=== PATIENT | male | born 1930 | race Caucasian/White ===

== ENCOUNTER 2018-01-14 23:43 | Inpatient (IN) | payer MEDICARE, OTHER ==
[2018-01-15 00:16] LABS: ADD MAN DIFF? NO
[2018-01-15 00:17] LABS: WHITE BLOOD COUNT 14.5 10^3/ul (4.8-10.8)
[2018-01-15 00:17] LABS: ABNORMAL IP MESSAGE 1; BASOPHILS % 0.2 % (0.0-2.0); EOSINOPHILS % 0.2 % (0.0-7.0); HEMATOCRIT 42.4 % (42.0-52.0); HEMOGLOBIN 14.1 g/dl (14.0-18.0); LYMPHOCYTES # 0.6 10^3/ul (0.8-2.9); LYMPHOCYTES % 3.9 % (15.0-51.0); MEAN CORPUSCULAR HEMOGLOBIN 30.5 pg (29.0-33.0); MEAN CORPUSCULAR HGB CONC 33.3 g/dl (32.0-37.0); MEAN CORPUSCULAR VOLUME 91.6 fl (82.0-101.0); MEAN PLATELET VOLUME 9.3 fl (7.4-10.4); MONOCYTE # 0.6 10^3/ul (0.3-0.9); MONOCYTES % 4.4 % (0.0-11.0); NEUTROPHIL # 13.2 10^3/ul (1.6-7.5); PLATELET COUNT 229 10^3/UL (140-415); POSITIVE DIFF @See below; RED BLOOD COUNT 4.63 10^6/ul (4.70-6.10)
[2018-01-15] MEDS: SODIUM CHLORIDE 0.9% 1L BAG IV* (00:18)
[2018-01-15] MEDS: CEFEPIME 2GM/50 ML (PMX) 50 ML IVPB (00:19)
[2018-01-15] MEDS: KETOROLAC 15 MG INJ IV (00:19)
[2018-01-15] MEDS: VANCOMYCIN 1 GM (PMX) 250 ML IVPB (00:19)
[2018-01-15 01:05] LABS: INR 1.08; PROTIME 14.1 Sec (11.9-14.9); PT RATIO 1.1
[2018-01-15 01:06] LABS: PARTIAL THROMBOPLASTIN TIME 63.8 Sec (23.0-35.0)
[2018-01-15 01:15] LABS: ANION GAP 12 (5-13); BLOOD UREA NITROGEN 29 mg/dl (7-20); CALCIUM 8.9 mg/dl (8.4-10.2); CARBON DIOXIDE 26 mmol/L (21-31); CHLORIDE 103 mmol/L (97-110); CREATININE 1.13 mg/dl (0.61-1.24); GLUCOSE 129 mg/dl (70-220); POTASSIUM 4.6 mmol/L (3.5-5.1); SODIUM 141 mmol/L (135-144)
[2018-01-15 01:27] LABS: TROPONIN-I < 0.012 ng/ml (0.000-0.120)
[2018-01-15 01:37] LABS: ADD UMIC NO; UR ASCORBIC ACID 20 mg/dL (NEGATIVE); UR BILIRUBIN (Dip) NEGATIVE (NEGATIVE); UR BLOOD (Dip) NEGATIVE (NEGATIVE); UR CLARITY CLEAR (CLEAR); UR COLOR YELLOW (YELLOW); UR GLUCOSE (Dip) NEGATIVE (NEGATIVE); UR KETONES (Dip) NEGATIVE (NEGATIVE); UR LEUKOCYTE ESTERASE (Dip) NEGATIVE Leu/ul (NEGATIVE); UR NITRITE (Dip) NEGATIVE (NEGATIVE); UR SPECIFIC GRAVITY (Dip) 1.011 (1.003-1.030); UR TOTAL PROTEIN (Dip) NEGATIVE (NEGATIVE); UR UROBILINOGEN (Dip) NEGATIVE (NEGATIVE)
[2018-01-15] MEDS ORDERED: ACETAMINOPHEN 325 MG TAB PO (02:00)
[2018-01-15] MEDS ORDERED: ONDANSETRON 4 MG INJ IV (02:00)
[2018-01-15] MEDS ORDERED: VANCOMYCIN IV PER PHARMACY XX (05:00)
[2018-01-15] MEDS ORDERED: ACETAMINOPHEN 650 MG SUPP PR (05:00)
[2018-01-15] MEDS: ALBUTEROL/IPRATROPIUM (NEB) 3 ML AMP HHN ×5 (05:12→20:42)
[2018-01-15] MEDS: DEXTROSE 5%-0.45% NACL 1,000 ML IV ×2 (05:22→18:07)
[2018-01-15 06:06] LABS: LACTIC ACID 2.5 mmol/L (0.5-2.0)
[2018-01-15 06:12] LABS: ADD MAN DIFF? NO
[2018-01-15 06:21] LABS: BASOPHILS % 0.1 % (0.0-2.0); HEMATOCRIT 38.2 % (42.0-52.0); HEMOGLOBIN 12.5 g/dl (14.0-18.0); LYMPHOCYTES # 0.7 10^3/ul (0.8-2.9); LYMPHOCYTES % 4.8 % (15.0-51.0); MEAN CORPUSCULAR HEMOGLOBIN 30.7 pg (29.0-33.0); MEAN CORPUSCULAR HGB CONC 32.7 g/dl (32.0-37.0); MEAN CORPUSCULAR VOLUME 93.9 fl (82.0-101.0); MEAN PLATELET VOLUME 9.6 fl (7.4-10.4); MONOCYTE # 0.7 10^3/ul (0.3-0.9); MONOCYTES % 4.5 % (0.0-11.0); NEUTROPHIL # 13.8 10^3/ul (1.6-7.5); NEUTROPHILS % 90.1 % (39.0-77.0); PLATELET COUNT 188 10^3/UL (140-415); RED BLOOD COUNT 4.07 10^6/ul (4.70-6.10); RED CELL DISTRIBUTION WIDTH 13.2 % (11.5-14.5)
[2018-01-15 06:21] LABS: WHITE BLOOD COUNT 15.3 10^3/ul (4.8-10.8)
[2018-01-15 06:36] LABS: ANION GAP 8 (5-13); BLOOD UREA NITROGEN 27 mg/dl (7-20); CALCIUM 8.2 mg/dl (8.4-10.2); CARBON DIOXIDE 24 mmol/L (21-31); CHLORIDE 112 mmol/L (97-110); CREATININE 1.05 mg/dl (0.61-1.24); GLUCOSE 118 mg/dl (70-220); POTASSIUM 4.6 mmol/L (3.5-5.1); SODIUM 144 mmol/L (135-144)
[2018-01-15] MEDS: CEFEPIME 1GM/50 ML (PMX) 50 ML IVPB ×2 (09:53→21:33)
[2018-01-15] MEDS: ENOXAPARIN 40 MG/0.4 ML SYG SC (10:08)
[2018-01-15] MEDS ORDERED: IPRATROPIUM (NEB) 0.5 MG/2.5 ML AMP HHN (17:00)
[2018-01-15] MEDS: LORAZEPAM 2 MG INJ IV (17:41)
[2018-01-15] MEDS: SOD CHLORIDE 0.9% 250 ML IV (17:42)
[2018-01-15] MEDS: LACTOBACILLUS RHAMNOSUS CAP PO (21:00)
[2018-01-15] MEDS: VANCOMYCIN 1.25 GM in SOD CHLORIDE 0.9% 250 ML IVPB (21:36)
[2018-01-16] MEDS: DEXTROSE 5%-0.45% NACL 1,000 ML IV ×3 (00:22→20:46)
[2018-01-16] MEDS: ALBUTEROL/IPRATROPIUM (NEB) 3 ML AMP HHN ×6 (01:18→20:27)
[2018-01-16 05:48] LABS: ADD MAN DIFF? NO
[2018-01-16 05:54] LABS: BASOPHILS % 0.2 % (0.0-2.0); EOSINOPHILS % 0.3 % (0.0-7.0); HEMATOCRIT 32.6 % (42.0-52.0); HEMOGLOBIN 10.7 g/dl (14.0-18.0); LYMPHOCYTES % 9.8 % (15.0-51.0); MEAN CORPUSCULAR HEMOGLOBIN 31.2 pg (29.0-33.0); MEAN CORPUSCULAR HGB CONC 32.8 g/dl (32.0-37.0); MEAN PLATELET VOLUME 9.7 fl (7.4-10.4); MONOCYTE # 0.6 10^3/ul (0.3-0.9); MONOCYTES % 5.6 % (0.0-11.0); NEUTROPHIL # 8.4 10^3/ul (1.6-7.5); NEUTROPHILS % 83.1 % (39.0-77.0); PLATELET COUNT 166 10^3/UL (140-415); RED BLOOD COUNT 3.43 10^6/ul (4.70-6.10); RED CELL DISTRIBUTION WIDTH 13.7 % (11.5-14.5)
[2018-01-16 05:54] LABS: WHITE BLOOD COUNT 10.1 10^3/ul (4.8-10.8)
[2018-01-16] MEDS: PANTOPRAZOLE (EC) 40 MG TAB PO (06:00)
[2018-01-16 06:13] LABS: ANION GAP 7 (5-13); BLOOD UREA NITROGEN 26 mg/dl (7-20); CALCIUM 8.5 mg/dl (8.4-10.2); CARBON DIOXIDE 23 mmol/L (21-31); CHLORIDE 113 mmol/L (97-110); CREATININE 1.03 mg/dl (0.61-1.24); GLUCOSE 109 mg/dl (70-220); POTASSIUM 4.2 mmol/L (3.5-5.1); SODIUM 143 mmol/L (135-144)
[2018-01-16] MEDS: LACTOBACILLUS RHAMNOSUS CAP PO ×3 (09:00→20:46)
[2018-01-16] MEDS: ENOXAPARIN 40 MG/0.4 ML SYG SC (09:32)
[2018-01-16] MEDS: CEFEPIME 1GM/50 ML (PMX) 50 ML IVPB ×2 (09:49→20:47)
[2018-01-16] MEDS: VANCOMYCIN 1.25 GM in SOD CHLORIDE 0.9% 250 ML IVPB (20:47)
[2018-01-17] MEDS: ALBUTEROL/IPRATROPIUM (NEB) 3 ML AMP HHN ×6 (00:42→20:19)
[2018-01-17 05:34] LABS: ADD MAN DIFF? NO
[2018-01-17 05:38] LABS: BASOPHILS % 0.3 % (0.0-2.0); EOSINOPHILS # 0.2 10^3/ul (0.0-0.5); HEMATOCRIT 33.5 % (42.0-52.0); HEMOGLOBIN 11.1 g/dl (14.0-18.0); LYMPHOCYTES # 1.1 10^3/ul (0.8-2.9); LYMPHOCYTES % 10.9 % (15.0-51.0); MEAN CORPUSCULAR HEMOGLOBIN 30.7 pg (29.0-33.0); MEAN CORPUSCULAR HGB CONC 33.1 g/dl (32.0-37.0); MEAN CORPUSCULAR VOLUME 92.5 fl (82.0-101.0); MEAN PLATELET VOLUME 9.7 fl (7.4-10.4); MONOCYTE # 0.6 10^3/ul (0.3-0.9); MONOCYTES % 6.5 % (0.0-11.0); NEUTROPHIL # 7.8 10^3/ul (1.6-7.5); NEUTROPHILS % 79.9 % (39.0-77.0); PLATELET COUNT 152 10^3/UL (140-415); RED BLOOD COUNT 3.62 10^6/ul (4.70-6.10); RED CELL DISTRIBUTION WIDTH 13.7 % (11.5-14.5)
[2018-01-17 05:38] LABS: WHITE BLOOD COUNT 9.7 10^3/ul (4.8-10.8)
[2018-01-17 06:05] LABS: ANION GAP 6 (5-13); BLOOD UREA NITROGEN 20 mg/dl (7-20); CALCIUM 8.6 mg/dl (8.4-10.2); CARBON DIOXIDE 25 mmol/L (21-31); CHLORIDE 113 mmol/L (97-110); CREATININE 0.93 mg/dl (0.61-1.24); GLUCOSE 96 mg/dl (70-220); POTASSIUM 4.1 mmol/L (3.5-5.1); SODIUM 144 mmol/L (135-144)
[2018-01-17] MEDS: PANTOPRAZOLE (EC) 40 MG TAB PO (06:37)
[2018-01-17] MEDS: CEFEPIME 1GM/50 ML (PMX) 50 ML IVPB ×2 (09:21→21:13)
[2018-01-17] MEDS: LACTOBACILLUS RHAMNOSUS CAP PO ×3 (09:21→21:13)
[2018-01-17] MEDS: ENOXAPARIN 40 MG/0.4 ML SYG SC (09:30)
[2018-01-17] MEDS: DEXTROSE 5%-0.45% NACL 1,000 ML IV ×2 (10:20→15:08)
[2018-01-18] MEDS: ALBUTEROL/IPRATROPIUM (NEB) 3 ML AMP HHN ×7 (00:34→20:00)
[2018-01-18 05:38] LABS: ADD MAN DIFF? NO
[2018-01-18 05:39] LABS: WHITE BLOOD COUNT 9.6 10^3/ul (4.8-10.8)
[2018-01-18 05:39] LABS: BASOPHILS % 0.2 % (0.0-2.0); EOSINOPHILS # 0.3 10^3/ul (0.0-0.5); EOSINOPHILS % 3.6 % (0.0-7.0); HEMATOCRIT 32.7 % (42.0-52.0); HEMOGLOBIN 10.9 g/dl (14.0-18.0); LYMPHOCYTES # 1.1 10^3/ul (0.8-2.9); LYMPHOCYTES % 11.8 % (15.0-51.0); MEAN CORPUSCULAR HEMOGLOBIN 30.9 pg (29.0-33.0); MEAN CORPUSCULAR HGB CONC 33.3 g/dl (32.0-37.0); MEAN CORPUSCULAR VOLUME 92.6 fl (82.0-101.0); MEAN PLATELET VOLUME 9.8 fl (7.4-10.4); MONOCYTE # 0.5 10^3/ul (0.3-0.9); MONOCYTES % 5.1 % (0.0-11.0); NEUTROPHIL # 7.5 10^3/ul (1.6-7.5); NEUTROPHILS % 78.9 % (39.0-77.0); PLATELET COUNT 167 10^3/UL (140-415); RED BLOOD COUNT 3.53 10^6/ul (4.70-6.10); RED CELL DISTRIBUTION WIDTH 13.8 % (11.5-14.5)
[2018-01-18 06:11] LABS: ANION GAP 10 (5-13); BLOOD UREA NITROGEN 16 mg/dl (7-20); CALCIUM 8.5 mg/dl (8.4-10.2); CARBON DIOXIDE 25 mmol/L (21-31); CHLORIDE 109 mmol/L (97-110); CREATININE 0.96 mg/dl (0.61-1.24); GLUCOSE 100 mg/dl (70-220); POTASSIUM 3.4 mmol/L (3.5-5.1); SODIUM 144 mmol/L (135-144)
[2018-01-18] MEDS: DEXTROSE 5%-0.45% NACL 1,000 ML IV ×2 (06:11→21:58)
[2018-01-18] MEDS: PANTOPRAZOLE (EC) 40 MG TAB PO (06:11)
[2018-01-18] MEDS: LACTOBACILLUS RHAMNOSUS CAP PO ×3 (09:01→22:58)
[2018-01-18] MEDS: CEFEPIME 1GM/50 ML (PMX) 50 ML IVPB ×2 (09:01→21:58)
[2018-01-18] MEDS: ENOXAPARIN 40 MG/0.4 ML SYG SC (09:10)
[2018-01-18] MEDS: POTASSIUM CHLORIDE 100 ML IVPB (12:49)
[2018-01-19] MEDS: ALBUTEROL/IPRATROPIUM (NEB) 3 ML AMP HHN ×6 (01:29→20:59)
[2018-01-19] MEDS: DEXTROSE 5%-0.45% NACL 1,000 ML IV ×2 (02:20→12:25)
[2018-01-19 06:12] LABS: ADD MAN DIFF? NO
[2018-01-19 06:20] LABS: WHITE BLOOD COUNT 8.7 10^3/ul (4.8-10.8)
[2018-01-19 06:20] LABS: BASOPHILS % 0.3 % (0.0-2.0); EOSINOPHILS # 0.4 10^3/ul (0.0-0.5); EOSINOPHILS % 4.7 % (0.0-7.0); HEMATOCRIT 34.9 % (42.0-52.0); HEMOGLOBIN 11.4 g/dl (14.0-18.0); LYMPHOCYTES # 1.2 10^3/ul (0.8-2.9); LYMPHOCYTES % 14.2 % (15.0-51.0); MEAN CORPUSCULAR HEMOGLOBIN 30.5 pg (29.0-33.0); MEAN CORPUSCULAR HGB CONC 32.7 g/dl (32.0-37.0); MEAN CORPUSCULAR VOLUME 93.3 fl (82.0-101.0); MEAN PLATELET VOLUME 9.6 fl (7.4-10.4); MONOCYTE # 0.7 10^3/ul (0.3-0.9); MONOCYTES % 7.6 % (0.0-11.0); NEUTROPHIL # 6.3 10^3/ul (1.6-7.5); NEUTROPHILS % 72.5 % (39.0-77.0); PLATELET COUNT 201 10^3/UL (140-415); RED BLOOD COUNT 3.74 10^6/ul (4.70-6.10); RED CELL DISTRIBUTION WIDTH 13.5 % (11.5-14.5)
[2018-01-19] MEDS: LANSOPRAZOLE 30 MG CAP PO (06:37)
[2018-01-19 07:17] LABS: ANION GAP 7 (5-13); BLOOD UREA NITROGEN 14 mg/dl (7-20); CALCIUM 8.8 mg/dl (8.4-10.2); CARBON DIOXIDE 25 mmol/L (21-31); CHLORIDE 111 mmol/L (97-110); CREATININE 0.88 mg/dl (0.61-1.24); GLUCOSE 96 mg/dl (70-220); POTASSIUM 3.9 mmol/L (3.5-5.1); SODIUM 143 mmol/L (135-144)
[2018-01-19] MEDS: BARIUM SULFATE 135 ML (E-Z HD) PO ×4 (09:55→09:56)
[2018-01-19] MEDS: LACTOBACILLUS RHAMNOSUS CAP PO ×3 (11:10→20:48)
[2018-01-19] MEDS: ENOXAPARIN 40 MG/0.4 ML SYG SC (11:21)
[2018-01-19] MEDS: CEFEPIME 1GM/50 ML (PMX) 50 ML IVPB ×2 (12:25→20:48)
[2018-01-20] MEDS: ALBUTEROL/IPRATROPIUM (NEB) 3 ML AMP HHN ×6 (01:20→20:23)
[2018-01-20] MEDS: DEXTROSE 5%-0.45% NACL 1,000 ML IV ×2 (04:47→21:14)
[2018-01-20] MEDS: BARIUM SULFATE 135 ML (E-Z HD) PO (04:58)
[2018-01-20] MEDS: LANSOPRAZOLE 30 MG CAP PO (05:00)
[2018-01-20 06:18] LABS: WHITE BLOOD COUNT 8.9 10^3/ul (4.8-10.8)
[2018-01-20 06:18] LABS: ADD MAN DIFF? NO; BASOPHILS % 0.3 % (0.0-2.0); EOSINOPHILS # 0.3 10^3/ul (0.0-0.5); EOSINOPHILS % 3.8 % (0.0-7.0); HEMATOCRIT 34.8 % (42.0-52.0); HEMOGLOBIN 11.3 g/dl (14.0-18.0); LYMPHOCYTES # 1.3 10^3/ul (0.8-2.9); LYMPHOCYTES % 14.1 % (15.0-51.0); MEAN CORPUSCULAR HEMOGLOBIN 30.6 pg (29.0-33.0); MEAN CORPUSCULAR HGB CONC 32.5 g/dl (32.0-37.0); MEAN CORPUSCULAR VOLUME 94.3 fl (82.0-101.0); MONOCYTE # 0.7 10^3/ul (0.3-0.9); MONOCYTES % 8.1 % (0.0-11.0); NEUTROPHIL # 6.5 10^3/ul (1.6-7.5); NEUTROPHILS % 73.1 % (39.0-77.0); PLATELET COUNT 200 10^3/UL (140-415); RED BLOOD COUNT 3.69 10^6/ul (4.70-6.10); RED CELL DISTRIBUTION WIDTH 13.8 % (11.5-14.5)
[2018-01-20 07:20] LABS: ANION GAP 8 (5-13); BLOOD UREA NITROGEN 13 mg/dl (7-20); CALCIUM 8.6 mg/dl (8.4-10.2); CARBON DIOXIDE 27 mmol/L (21-31); CHLORIDE 108 mmol/L (97-110); CREATININE 0.88 mg/dl (0.61-1.24); GLUCOSE 99 mg/dl (70-220); POTASSIUM 3.7 mmol/L (3.5-5.1); SODIUM 143 mmol/L (135-144)
[2018-01-20] MEDS: LACTOBACILLUS RHAMNOSUS CAP PO ×3 (08:42→21:14)
[2018-01-20] MEDS: CEFEPIME 1GM/50 ML (PMX) 50 ML IVPB ×2 (08:43→21:14)
[2018-01-20] MEDS: ENOXAPARIN 40 MG/0.4 ML SYG SC (09:06)
[2018-01-21] MEDS: ALBUTEROL/IPRATROPIUM (NEB) 3 ML AMP HHN ×6 (00:54→21:48)
[2018-01-21] MEDS: LANSOPRAZOLE 30 MG CAP PO (06:03)
[2018-01-21 06:10] LABS: ADD MAN DIFF? NO
[2018-01-21 06:20] LABS: WHITE BLOOD COUNT 8.8 10^3/ul (4.8-10.8)
[2018-01-21 06:20] LABS: BASOPHILS % 0.5 % (0.0-2.0); EOSINOPHILS # 0.4 10^3/ul (0.0-0.5); EOSINOPHILS % 4.1 % (0.0-7.0); HEMATOCRIT 34.8 % (42.0-52.0); HEMOGLOBIN 11.1 g/dl (14.0-18.0); LYMPHOCYTES # 1.5 10^3/ul (0.8-2.9); LYMPHOCYTES % 17.4 % (15.0-51.0); MEAN CORPUSCULAR HEMOGLOBIN 30.2 pg (29.0-33.0); MEAN CORPUSCULAR HGB CONC 31.9 g/dl (32.0-37.0); MEAN CORPUSCULAR VOLUME 94.8 fl (82.0-101.0); MEAN PLATELET VOLUME 9.7 fl (7.4-10.4); MONOCYTE # 0.6 10^3/ul (0.3-0.9); MONOCYTES % 6.9 % (0.0-11.0); NEUTROPHIL # 6.2 10^3/ul (1.6-7.5); NEUTROPHILS % 70.5 % (39.0-77.0); PLATELET COUNT 227 10^3/UL (140-415); RED BLOOD COUNT 3.67 10^6/ul (4.70-6.10); RED CELL DISTRIBUTION WIDTH 13.8 % (11.5-14.5)
[2018-01-21 06:25] LABS: ANION GAP 7 (5-13); BLOOD UREA NITROGEN 12 mg/dl (7-20); CALCIUM 8.9 mg/dl (8.4-10.2); CARBON DIOXIDE 27 mmol/L (21-31); CHLORIDE 109 mmol/L (97-110); CREATININE 0.97 mg/dl (0.61-1.24); GLUCOSE 98 mg/dl (70-220); SODIUM 143 mmol/L (135-144)
[2018-01-21] MEDS: DEXTROSE 5%-0.45% NACL 1,000 ML IV ×2 (08:00→21:14)
[2018-01-21] MEDS: LACTOBACILLUS RHAMNOSUS CAP PO ×3 (10:06→21:15)
[2018-01-21] MEDS: CEFEPIME 1GM/50 ML (PMX) 50 ML IVPB ×2 (10:06→21:15)
[2018-01-21] MEDS: ENOXAPARIN 40 MG/0.4 ML SYG SC (10:09)
[2018-01-22] MEDS: ALBUTEROL/IPRATROPIUM (NEB) 3 ML AMP HHN ×6 (01:56→20:30)
[2018-01-22 05:36] LABS: ADD MAN DIFF? NO
[2018-01-22 05:43] LABS: WHITE BLOOD COUNT 7.2 10^3/ul (4.8-10.8)
[2018-01-22 05:43] LABS: BASOPHILS % 0.6 % (0.0-2.0); EOSINOPHILS # 0.3 10^3/ul (0.0-0.5); EOSINOPHILS % 3.8 % (0.0-7.0); HEMATOCRIT 34.2 % (42.0-52.0); LYMPHOCYTES # 1.3 10^3/ul (0.8-2.9); LYMPHOCYTES % 17.5 % (15.0-51.0); MEAN CORPUSCULAR HEMOGLOBIN 30.4 pg (29.0-33.0); MEAN CORPUSCULAR HGB CONC 32.2 g/dl (32.0-37.0); MEAN CORPUSCULAR VOLUME 94.5 fl (82.0-101.0); MEAN PLATELET VOLUME 9.8 fl (7.4-10.4); MONOCYTE # 0.6 10^3/ul (0.3-0.9); MONOCYTES % 8.5 % (0.0-11.0); NEUTROPHILS % 68.8 % (39.0-77.0); PLATELET COUNT 227 10^3/UL (140-415); RED BLOOD COUNT 3.62 10^6/ul (4.70-6.10); RED CELL DISTRIBUTION WIDTH 13.8 % (11.5-14.5)
[2018-01-22] MEDS: LANSOPRAZOLE 30 MG CAP PO (06:03)
[2018-01-22 07:52] LABS: ANION GAP 8 (5-13); BLOOD UREA NITROGEN 11 mg/dl (7-20); CALCIUM 8.7 mg/dl (8.4-10.2); CARBON DIOXIDE 27 mmol/L (21-31); CHLORIDE 109 mmol/L (97-110); CREATININE 0.94 mg/dl (0.61-1.24); GLUCOSE 104 mg/dl (70-220); POTASSIUM 4.5 mmol/L (3.5-5.1); SODIUM 144 mmol/L (135-144)
[2018-01-22] MEDS: LACTOBACILLUS RHAMNOSUS CAP PO ×3 (08:31→21:05)
[2018-01-22] MEDS: CEFEPIME 1GM/50 ML (PMX) 50 ML IVPB ×2 (08:31→21:05)
[2018-01-22] MEDS: ENOXAPARIN 40 MG/0.4 ML SYG SC (08:44)
[2018-01-22] MEDS: DEXTROSE 5%-0.45% NACL 1,000 ML IV ×2 (10:40→23:20)
[2018-01-22] MEDS ORDERED: COLLAGENASE 5 GM (UD JAR) TOP (21:12)
[2018-01-23] MEDS: ALBUTEROL/IPRATROPIUM (NEB) 3 ML AMP HHN ×6 (01:48→20:21)
[2018-01-23 05:38] LABS: ADD MAN DIFF? NO
[2018-01-23 05:41] LABS: BASOPHILS % 0.5 % (0.0-2.0); EOSINOPHILS # 0.3 10^3/ul (0.0-0.5); EOSINOPHILS % 3.7 % (0.0-7.0); HEMATOCRIT 34.1 % (42.0-52.0); HEMOGLOBIN 10.9 g/dl (14.0-18.0); LYMPHOCYTES # 1.3 10^3/ul (0.8-2.9); LYMPHOCYTES % 17.1 % (15.0-51.0); MEAN CORPUSCULAR HEMOGLOBIN 30.2 pg (29.0-33.0); MEAN CORPUSCULAR VOLUME 94.5 fl (82.0-101.0); MEAN PLATELET VOLUME 10.6 fl (7.4-10.4); MONOCYTE # 0.7 10^3/ul (0.3-0.9); MONOCYTES % 8.7 % (0.0-11.0); NEUTROPHIL # 5.2 10^3/ul (1.6-7.5); NEUTROPHILS % 69.5 % (39.0-77.0); PLATELET COUNT 197 10^3/UL (140-415); POSITIVE DIFF @See below; RED BLOOD COUNT 3.61 10^6/ul (4.70-6.10); RED CELL DISTRIBUTION WIDTH 13.4 % (11.5-14.5)
[2018-01-23 05:41] LABS: WHITE BLOOD COUNT 7.5 10^3/ul (4.8-10.8)
[2018-01-23] MEDS: LANSOPRAZOLE 30 MG CAP PO (05:44)
[2018-01-23 07:39] LABS: ANION GAP 10 (5-13); BLOOD UREA NITROGEN 11 mg/dl (7-20); CALCIUM 8.7 mg/dl (8.4-10.2); CARBON DIOXIDE 26 mmol/L (21-31); CHLORIDE 108 mmol/L (97-110); GLUCOSE 97 mg/dl (70-220); POTASSIUM 4.2 mmol/L (3.5-5.1); SODIUM 144 mmol/L (135-144)
[2018-01-23] MEDS: LACTOBACILLUS RHAMNOSUS CAP PO ×3 (08:30→21:11)
[2018-01-23] MEDS: CEFEPIME 1GM/50 ML (PMX) 50 ML IVPB ×2 (08:31→21:11)
[2018-01-23] MEDS: ENOXAPARIN 40 MG/0.4 ML SYG SC (08:35)
[2018-01-23] MEDS: DEXTROSE 5%-0.45% NACL 1,000 ML IV (12:57)
[2018-01-23] MEDS: TAMSULOSIN (SR) 0.4 MG CAP PO (21:11)
[2018-01-24] MEDS: ALBUTEROL/IPRATROPIUM (NEB) 3 ML AMP HHN ×6 (00:02→20:24)
[2018-01-24] MEDS: DEXTROSE 5%-0.45% NACL 1,000 ML IV ×2 (03:46→15:50)
[2018-01-24] MEDS: LANSOPRAZOLE 30 MG CAP PO (05:04)
[2018-01-24] MEDS: LACTOBACILLUS RHAMNOSUS CAP PO ×3 (08:23→22:24)
[2018-01-24] MEDS: CEFEPIME 1GM/50 ML (PMX) 50 ML IVPB ×2 (08:23→22:24)
[2018-01-24] MEDS: ENOXAPARIN 40 MG/0.4 ML SYG SC (08:32)
[2018-01-24] MEDS: TAMSULOSIN (SR) 0.4 MG CAP PO (22:24)
[2018-01-25] MEDS: ALBUTEROL/IPRATROPIUM (NEB) 3 ML AMP HHN ×6 (00:45→21:00)
[2018-01-25] MEDS: LANSOPRAZOLE 30 MG CAP PO (05:07)
[2018-01-25] MEDS: DEXTROSE 5%-0.45% NACL 1,000 ML IV (05:08)
[2018-01-25] MEDS: LACTOBACILLUS RHAMNOSUS CAP PO ×3 (09:58→20:54)
[2018-01-25] MEDS: ENOXAPARIN 40 MG/0.4 ML SYG SC (10:23)
[2018-01-25] MEDS: TAMSULOSIN (SR) 0.4 MG CAP PO (20:54)
[2018-01-26] MEDS: ALBUTEROL/IPRATROPIUM (NEB) 3 ML AMP HHN ×4 (01:16→13:37)
[2018-01-26] MEDS: LANSOPRAZOLE 30 MG CAP PO (05:27)
[2018-01-26] MEDS: LACTOBACILLUS RHAMNOSUS CAP PO ×2 (09:38→12:53)
[2018-01-26] MEDS: ENOXAPARIN 40 MG/0.4 ML SYG SC (10:15)
== END 2018-01-26 15:48 | DRG 871 ==
LOC: E/R 23:43 → 6WM 01-15 01:35
DX: A41.9 Sepsis, unspecified organism (principal); J69.0 Pneumonitis due to inhalation of food and vomit; J96.01 Acute respiratory failure with hypoxia; G93.49 Other encephalopathy; E87.2 Acidosis; N39.0 Urinary tract infection, site not specified; R65.20 Severe sepsis without septic shock; D64.9 Anemia, unspecified; F32.9 Major depressive disorder, single episode, unspecified; F22 Delusional disorders; F02.80 Dementia in other diseases classified elsewhere, unspecified severity, without behavioral disturbance, psychotic disturbance, mood disturbance, and anxiety; G20 Parkinson's disease; K21.9 Gastro-esophageal reflux disease without esophagitis; I95.9 Hypotension, unspecified; I50.9 Heart failure, unspecified; I69.939 Monoplegia of upper limb following unspecified cerebrovascular disease affecting unspecified side; I69.991 Dysphagia following unspecified cerebrovascular disease; R13.10 Dysphagia, unspecified; M62.81 Muscle weakness (generalized); M54.5 Low back pain; M79.2 Neuralgia and neuritis, unspecified; N40.1 Benign prostatic hyperplasia with lower urinary tract symptoms; N39.498 Other specified urinary incontinence; Z87.440 Personal history of urinary (tract) infections
CPT/HCPCS: 36415; 71045; 74230; 80048; 81003; 82962; 83605; 84484; 85025; 85610; 85730; 87040; 87045; 87070; 87081; 87086; 89220; 92526; 92610; 92611; 93005; 93306; 94640; 94664; 96365; 96368; 96375; 99291-25

== ENCOUNTER 2018-07-21 22:42 | Inpatient (IN) | payer MEDICARE, OTHER ==
[2018-07-21 23:49] LABS: ADD MAN DIFF? NO
[2018-07-21] MEDS: SODIUM CHLORIDE 0.9% 1L BAG IV* (23:50)
[2018-07-21 23:59] LABS: WHITE BLOOD COUNT 19.8 10^3/ul (4.8-10.8)
[2018-07-21 23:59] LABS: BASOPHIL # 0.1 10^3/ul (0.0-0.1); BASOPHILS % 0.3 % (0.0-2.0); EOSINOPHILS # 0.2 10^3/ul (0.0-0.5); EOSINOPHILS % 0.9 % (0.0-7.0); HEMATOCRIT 40.7 % (42.0-52.0); HEMOGLOBIN 13.5 g/dl (14.0-18.0); LYMPHOCYTES # 1.6 10^3/ul (0.8-2.9); LYMPHOCYTES % 7.8 % (15.0-51.0); MEAN CORPUSCULAR HEMOGLOBIN 30.4 pg (29.0-33.0); MEAN CORPUSCULAR HGB CONC 33.2 g/dl (32.0-37.0); MEAN CORPUSCULAR VOLUME 91.7 fl (82.0-101.0); MEAN PLATELET VOLUME 9.7 fl (7.4-10.4); MONOCYTES % 5.2 % (0.0-11.0); NEUTROPHIL # 16.9 10^3/ul (1.6-7.5); NEUTROPHILS % 85.2 % (39.0-77.0); PLATELET COUNT 231 10^3/UL (140-415); RED BLOOD COUNT 4.44 10^6/ul (4.70-6.10); RED CELL DISTRIBUTION WIDTH 13.1 % (11.5-14.5)
[2018-07-22 00:19] LABS: INR 0.99; PROTIME 13.2 Sec (11.9-14.9)
[2018-07-22 00:20] LABS: PARTIAL THROMBOPLASTIN TIME 61.7 Sec (23.0-35.0)
[2018-07-22 00:26] LABS: ADD UMIC YES; UR AMORPHOUS CRYSTAL FEW /HPF (NONE SEEN); UR ASCORBIC ACID 40 mg/dL (NEGATIVE); UR BACTERIA FEW /HPF (NONE SEEN); UR BILIRUBIN (Dip) NEGATIVE (NEGATIVE); UR BLOOD (Dip) 1+ mg/dL (NEGATIVE); UR CLARITY TURBID (CLEAR); UR COLOR YELLOW (YELLOW); UR GLUCOSE (Dip) NEGATIVE (NEGATIVE); UR KETONES (Dip) TRACE mg/dL (NEGATIVE); UR LEUKOCYTE ESTERASE (Dip) 3+ Leu/ul (NEGATIVE); UR NITRITE (Dip) NEGATIVE (NEGATIVE); UR RBC 147 /HPF (0-5); UR SPECIFIC GRAVITY (Dip) 1.017 (1.003-1.030); UR TOTAL PROTEIN (Dip) 1+ mg/dl (NEGATIVE); UR UROBILINOGEN (Dip) NEGATIVE (NEGATIVE); UR WBC > 182 /HPF (0-5)
[2018-07-22 00:27] LABS: ALANINE AMINOTRANSFERASE 9 IU/L (13-69); ALBUMIN 3.9 g/dl (3.3-4.9); ALBUMIN/GLOBULIN RATIO 1.05; ALKALINE PHOSPHATASE 71 IU/L (42-121); ANION GAP 7 (5-13); ASPARTATE AMINO TRANSFERASE 29 IU/L (15-46); BILIRUBIN,INDIRECT 0.6 mg/dl (0-1.1); BILIRUBIN,TOTAL 0.6 mg/dl (0.2-1.3); BLOOD UREA NITROGEN 33 mg/dl (7-20); CALCIUM 8.9 mg/dl (8.4-10.2); CARBON DIOXIDE 29 mmol/L (21-31); CHLORIDE 106 mmol/L (97-110); CREATININE 1.07 mg/dl (0.61-1.24); GLUCOSE 121 mg/dl (70-220); POTASSIUM 5.4 mmol/L (3.5-5.1); SODIUM 142 mmol/L (135-144); TOTAL PROTEIN 7.6 g/dl (6.1-8.1)
[2018-07-22 00:34] LABS: VALPROATE 19 ug/ml (50-100)
[2018-07-22 00:37] LABS: TROPONIN-I < 0.012 ng/ml (0.000-0.120)
[2018-07-22] MEDS: MEROPENEM 1 GM/50ML(PMX) 50 ML IVPB (02:41)
[2018-07-22] MEDS ORDERED: ONDANSETRON 4 MG INJ IV (10:30)
[2018-07-22] MEDS ORDERED: morphine 2 MG INJ IV (10:30)
[2018-07-22] MEDS ORDERED: ACETAMINOPHEN 325 MG TAB PO (13:00)
[2018-07-22] MEDS ORDERED: ALBUTEROL 0.083% (NEB) 2.5 MG/3 ML AMP NEB (13:00)
[2018-07-22] MEDS: FERROUS SULFATE 60 MG/ML 5ML CUP PO (13:28)
[2018-07-22] MEDS: FINASTERIDE 5 MG TAB PO (13:28)
[2018-07-22] MEDS: CHOLECALCIFEROL 1,000 UNIT TAB PO (13:28)
[2018-07-22] MEDS: DILTIAZEM 60 MG TAB GTB ×2 (13:29→22:00)
[2018-07-22] MEDS: CALCIUM CARBONATE 1.25 GM TAB PO (13:29)
[2018-07-22] MEDS: MEROPENEM 500MG/50 ML (PMX) 50 ML IVPB ×2 (13:29→22:47)
[2018-07-22] MEDS: ALBUTEROL/IPRATROPIUM (NEB) 3 ML AMP HHN ×2 (13:45→20:17)
[2018-07-22] MEDS: DIVALPROEX SPRINKLE 125 MG CAP PO ×2 (17:30→20:37)
[2018-07-22] MEDS: TAMSULOSIN (SR) 0.4 MG CAP PO (20:38)
[2018-07-22] MEDS: BETAMETHASONE/CLOTRIMAZOLE 15 GM CR TOP (20:38)
[2018-07-22] MEDS: CARBIDOPA/LEVODOPA (25/100) TAB PO (20:38)
[2018-07-22] MEDS: CITALOPRAM 20 MG TAB PO (20:38)
[2018-07-22] MEDS: ATORVASTATIN 10 MG TAB PO (20:38)
[2018-07-22] MEDS: LORAZEPAM 2 MG INJ IV (22:20)
[2018-07-22] MEDS ORDERED: PENDING SANTYL ORDER FOR WOUND CARE XX (22:30)
[2018-07-23] MEDS: ALBUTEROL/IPRATROPIUM (NEB) 3 ML AMP HHN ×4 (01:39→19:40)
[2018-07-23 05:33] LABS: ADD MAN DIFF? NO
[2018-07-23] MEDS: MEROPENEM 500MG/50 ML (PMX) 50 ML IVPB ×3 (05:33→20:37)
[2018-07-23 05:40] LABS: WHITE BLOOD COUNT 9.5 10^3/ul (4.8-10.8)
[2018-07-23 05:40] LABS: BASOPHILS % 0.4 % (0.0-2.0); EOSINOPHILS # 0.4 10^3/ul (0.0-0.5); EOSINOPHILS % 4.1 % (0.0-7.0); HEMATOCRIT 34.9 % (42.0-52.0); HEMOGLOBIN 11.2 g/dl (14.0-18.0); LYMPHOCYTES # 1.2 10^3/ul (0.8-2.9); LYMPHOCYTES % 12.6 % (15.0-51.0); MEAN CORPUSCULAR HEMOGLOBIN 29.7 pg (29.0-33.0); MEAN CORPUSCULAR HGB CONC 32.1 g/dl (32.0-37.0); MEAN CORPUSCULAR VOLUME 92.6 fl (82.0-101.0); MEAN PLATELET VOLUME 9.8 fl (7.4-10.4); MONOCYTE # 0.6 10^3/ul (0.3-0.9); MONOCYTES % 6.2 % (0.0-11.0); NEUTROPHIL # 7.2 10^3/ul (1.6-7.5); NEUTROPHILS % 76.3 % (39.0-77.0); PLATELET COUNT 211 10^3/UL (140-415); RED BLOOD COUNT 3.77 10^6/ul (4.70-6.10); RED CELL DISTRIBUTION WIDTH 13.2 % (11.5-14.5)
[2018-07-23] MEDS: DILTIAZEM 60 MG TAB GTB ×3 (06:00→22:00)
[2018-07-23 06:08] LABS: ANION GAP 7 (5-13); BLOOD UREA NITROGEN 26 mg/dl (7-20); CALCIUM 8.3 mg/dl (8.4-10.2); CARBON DIOXIDE 28 mmol/L (21-31); CHLORIDE 112 mmol/L (97-110); CREATININE 0.97 mg/dl (0.61-1.24); GLUCOSE 92 mg/dl (70-220); POTASSIUM 3.9 mmol/L (3.5-5.1); SODIUM 147 mmol/L (135-144)
[2018-07-23] MEDS: CALCIUM CARBONATE 1.25 GM TAB PO (08:41)
[2018-07-23] MEDS: FERROUS SULFATE 60 MG/ML 5ML CUP PO (08:41)
[2018-07-23] MEDS: CHOLECALCIFEROL 1,000 UNIT TAB PO (08:41)
[2018-07-23] MEDS: FINASTERIDE 5 MG TAB PO (08:41)
[2018-07-23] MEDS: CARBIDOPA/LEVODOPA (25/100) TAB PO ×2 (08:41→20:36)
[2018-07-23] MEDS: ASPIRIN 81 MG TAB PO (08:41)
[2018-07-23] MEDS: DIVALPROEX SPRINKLE 125 MG CAP PO ×3 (08:41→20:34)
[2018-07-23] MEDS: BETAMETHASONE/CLOTRIMAZOLE 15 GM CR TOP ×2 (08:41→20:38)
[2018-07-23] MEDS: ENOXAPARIN 30 MG/0.3 ML SYG SC (08:42)
[2018-07-23] MEDS: TAMSULOSIN (SR) 0.4 MG CAP PO (20:35)
[2018-07-23] MEDS: CITALOPRAM 20 MG TAB PO (20:36)
[2018-07-23] MEDS: ATORVASTATIN 10 MG TAB PO (20:38)
[2018-07-23] MEDS: hydrOXYzine HCL 10 MG TAB GTB (20:42)
[2018-07-24] MEDS: ALBUTEROL/IPRATROPIUM (NEB) 3 ML AMP HHN ×4 (01:22→19:47)
[2018-07-24] MEDS: MEROPENEM 500MG/50 ML (PMX) 50 ML IVPB ×3 (05:55→22:07)
[2018-07-24] MEDS: DILTIAZEM 60 MG TAB GTB ×3 (05:58→21:57)
[2018-07-24] MEDS: ENOXAPARIN 30 MG/0.3 ML SYG SC (08:54)
[2018-07-24] MEDS: CHOLECALCIFEROL 1,000 UNIT TAB PO (08:55)
[2018-07-24] MEDS: CALCIUM CARBONATE 1.25 GM TAB PO (08:55)
[2018-07-24] MEDS: CARBIDOPA/LEVODOPA (25/100) TAB PO ×2 (08:55→21:51)
[2018-07-24] MEDS: FERROUS SULFATE 60 MG/ML 5ML CUP PO (08:55)
[2018-07-24] MEDS: FINASTERIDE 5 MG TAB PO (08:55)
[2018-07-24] MEDS: DIVALPROEX SPRINKLE 125 MG CAP PO ×3 (08:55→21:52)
[2018-07-24] MEDS: ASPIRIN 81 MG TAB PO (08:55)
[2018-07-24] MEDS: DOCUSATE SODIUM 10 MG/ML (10ML CUP) PO ×2 (08:57→21:54)
[2018-07-24] MEDS: BETAMETHASONE/CLOTRIMAZOLE 15 GM CR TOP ×2 (08:57→21:54)
[2018-07-24] MEDS: ATORVASTATIN 10 MG TAB PO (21:52)
[2018-07-24] MEDS: TAMSULOSIN (SR) 0.4 MG CAP PO (21:52)
[2018-07-24] MEDS: CITALOPRAM 20 MG TAB PO (21:52)
[2018-07-25] MEDS: hydrOXYzine HCL 10 MG TAB GTB (01:00)
[2018-07-25] MEDS: ALBUTEROL/IPRATROPIUM (NEB) 3 ML AMP HHN ×4 (02:00→21:20)
[2018-07-25] MEDS: MEROPENEM 500MG/50 ML (PMX) 50 ML IVPB ×3 (05:40→23:24)
[2018-07-25] MEDS: DILTIAZEM 60 MG TAB GTB ×3 (06:14→21:28)
[2018-07-25] MEDS: ENOXAPARIN 30 MG/0.3 ML SYG SC (08:41)
[2018-07-25] MEDS: DIVALPROEX SPRINKLE 125 MG CAP PO ×3 (08:42→21:13)
[2018-07-25] MEDS: FINASTERIDE 5 MG TAB PO (08:42)
[2018-07-25] MEDS: ASPIRIN 81 MG TAB PO (08:42)
[2018-07-25] MEDS: BETAMETHASONE/CLOTRIMAZOLE 15 GM CR TOP ×2 (08:42→21:30)
[2018-07-25] MEDS: CHOLECALCIFEROL 1,000 UNIT TAB PO (08:42)
[2018-07-25] MEDS: CARBIDOPA/LEVODOPA (25/100) TAB PO ×2 (08:42→21:13)
[2018-07-25] MEDS: FERROUS SULFATE 60 MG/ML 5ML CUP PO (08:42)
[2018-07-25] MEDS: CALCIUM CARBONATE 1.25 GM TAB PO (08:42)
[2018-07-25] MEDS: DOCUSATE SODIUM 10 MG/ML (10ML CUP) PO ×2 (08:42→21:13)
[2018-07-25] MEDS ORDERED: VANCOMYCIN IV PER PHARMACY XX (15:30)
[2018-07-25] MEDS: VANCOMYCIN HCL 1.5 GM in SOD CHLORIDE 0.9% 250 ML IVPB (19:46)
[2018-07-25] MEDS: ATORVASTATIN 10 MG TAB PO (21:13)
[2018-07-25] MEDS: TAMSULOSIN (SR) 0.4 MG CAP PO (21:14)
[2018-07-25] MEDS: CITALOPRAM 20 MG TAB PO (21:26)
[2018-07-26] MEDS: ALBUTEROL/IPRATROPIUM (NEB) 3 ML AMP HHN ×4 (01:28→19:46)
[2018-07-26] MEDS: MEROPENEM 500MG/50 ML (PMX) 50 ML IVPB ×2 (05:51→14:36)
[2018-07-26] MEDS: DILTIAZEM 60 MG TAB GTB ×3 (06:10→22:09)
[2018-07-26] MEDS ORDERED: VANCOMYCIN 1 GM 250 ML IVPB (06:30)
[2018-07-26 07:30] LABS: ADD MAN DIFF? NO
[2018-07-26 07:33] LABS: BASOPHIL # 0.1 10^3/ul (0.0-0.1); BASOPHILS % 0.7 % (0.0-2.0); EOSINOPHILS # 0.5 10^3/ul (0.0-0.5); EOSINOPHILS % 4.9 % (0.0-7.0); HEMATOCRIT 38.8 % (42.0-52.0); HEMOGLOBIN 12.8 g/dl (14.0-18.0); LYMPHOCYTES # 1.1 10^3/ul (0.8-2.9); LYMPHOCYTES % 11.3 % (15.0-51.0); MEAN CORPUSCULAR HEMOGLOBIN 29.8 pg (29.0-33.0); MEAN CORPUSCULAR VOLUME 90.2 fl (82.0-101.0); MEAN PLATELET VOLUME 9.1 fl (7.4-10.4); MONOCYTE # 0.6 10^3/ul (0.3-0.9); MONOCYTES % 6.2 % (0.0-11.0); NEUTROPHIL # 7.4 10^3/ul (1.6-7.5); NEUTROPHILS % 76.6 % (39.0-77.0); PLATELET COUNT 244 10^3/UL (140-415)
[2018-07-26 07:33] LABS: WHITE BLOOD COUNT 9.7 10^3/ul (4.8-10.8)
[2018-07-26 08:00] LABS: ANION GAP 7 (5-13); BLOOD UREA NITROGEN 19 mg/dl (7-20); CALCIUM 8.5 mg/dl (8.4-10.2); CARBON DIOXIDE 26 mmol/L (21-31); CHLORIDE 110 mmol/L (97-110); CREATININE 0.92 mg/dl (0.61-1.24); GLUCOSE 96 mg/dl (70-220); SODIUM 143 mmol/L (135-144)
[2018-07-26] MEDS: DIVALPROEX SPRINKLE 125 MG CAP PO ×3 (09:04→20:44)
[2018-07-26] MEDS: CARBIDOPA/LEVODOPA (25/100) TAB PO ×2 (09:04→20:44)
[2018-07-26] MEDS: FERROUS SULFATE 60 MG/ML 5ML CUP PO (09:04)
[2018-07-26] MEDS: DOCUSATE SODIUM 10 MG/ML (10ML CUP) PO ×2 (09:04→20:44)
[2018-07-26] MEDS: BETAMETHASONE/CLOTRIMAZOLE 15 GM CR TOP ×2 (09:04→21:00)
[2018-07-26] MEDS: CHOLECALCIFEROL 1,000 UNIT TAB PO (09:04)
[2018-07-26] MEDS: FINASTERIDE 5 MG TAB PO (09:04)
[2018-07-26] MEDS: CALCIUM CARBONATE 1.25 GM TAB PO (09:04)
[2018-07-26] MEDS: ASPIRIN 81 MG TAB PO (09:04)
[2018-07-26] MEDS: ENOXAPARIN 30 MG/0.3 ML SYG SC (09:05)
[2018-07-26] MEDS: VANCOMYCIN 1 GM 250 ML IVPB (20:27)
[2018-07-26] MEDS: TAMSULOSIN (SR) 0.4 MG CAP PO (20:44)
[2018-07-26] MEDS: ATORVASTATIN 10 MG TAB PO (20:44)
[2018-07-26] MEDS: CITALOPRAM 20 MG TAB PO (20:44)
[2018-07-27] MEDS: ALBUTEROL/IPRATROPIUM (NEB) 3 ML AMP HHN ×3 (01:20→14:00)
[2018-07-27] MEDS: DILTIAZEM 60 MG TAB GTB ×3 (06:00→21:33)
[2018-07-27] MEDS: DIVALPROEX SPRINKLE 125 MG CAP PO ×3 (09:13→20:21)
[2018-07-27] MEDS: CHOLECALCIFEROL 1,000 UNIT TAB PO (09:13)
[2018-07-27] MEDS: FERROUS SULFATE 60 MG/ML 5ML CUP PO (09:14)
[2018-07-27] MEDS: DOCUSATE SODIUM 10 MG/ML (10ML CUP) PO ×2 (09:14→20:21)
[2018-07-27] MEDS: FINASTERIDE 5 MG TAB PO (09:14)
[2018-07-27] MEDS: CALCIUM CARBONATE 1.25 GM TAB PO (09:14)
[2018-07-27] MEDS: CARBIDOPA/LEVODOPA (25/100) TAB PO ×2 (09:14→20:21)
[2018-07-27] MEDS: ASPIRIN 81 MG TAB PO (09:15)
[2018-07-27] MEDS: ENOXAPARIN 30 MG/0.3 ML SYG SC (09:16)
[2018-07-27] MEDS: BETAMETHASONE/CLOTRIMAZOLE 15 GM CR TOP ×2 (16:40→20:22)
[2018-07-27] MEDS: VANCOMYCIN 1 GM 250 ML IVPB (20:20)
[2018-07-27] MEDS: ATORVASTATIN 10 MG TAB PO (20:21)
[2018-07-27] MEDS: CITALOPRAM 20 MG TAB PO (20:21)
[2018-07-27] MEDS: TAMSULOSIN (SR) 0.4 MG CAP PO (20:21)
[2018-07-28] MEDS: DILTIAZEM 60 MG TAB GTB ×3 (06:06→22:23)
[2018-07-28] MEDS: DIVALPROEX SPRINKLE 125 MG CAP PO ×3 (08:47→20:25)
[2018-07-28] MEDS: CARBIDOPA/LEVODOPA (25/100) TAB PO ×2 (08:47→20:25)
[2018-07-28] MEDS: CALCIUM CARBONATE 1.25 GM TAB PO (08:47)
[2018-07-28] MEDS: FERROUS SULFATE 60 MG/ML 5ML CUP PO (08:47)
[2018-07-28] MEDS: FINASTERIDE 5 MG TAB PO (08:47)
[2018-07-28] MEDS: DOCUSATE SODIUM 10 MG/ML (10ML CUP) PO ×2 (08:47→20:25)
[2018-07-28] MEDS: CHOLECALCIFEROL 1,000 UNIT TAB PO (08:48)
[2018-07-28] MEDS: ASPIRIN 81 MG TAB PO (08:48)
[2018-07-28] MEDS: BETAMETHASONE/CLOTRIMAZOLE 15 GM CR TOP ×2 (08:48→20:29)
[2018-07-28] MEDS: ENOXAPARIN 30 MG/0.3 ML SYG SC (08:48)
[2018-07-28] MEDS: ALBUTEROL/IPRATROPIUM (NEB) 3 ML AMP HHN ×3 (08:50→19:40)
[2018-07-28] MEDS: ATORVASTATIN 10 MG TAB PO (20:25)
[2018-07-28] MEDS: TAMSULOSIN (SR) 0.4 MG CAP PO (20:25)
[2018-07-28] MEDS: CITALOPRAM 20 MG TAB PO (20:26)
[2018-07-29] MEDS: ALBUTEROL/IPRATROPIUM (NEB) 3 ML AMP HHN ×4 (01:14→20:13)
[2018-07-29] MEDS: DILTIAZEM 60 MG TAB GTB ×3 (05:22→23:02)
[2018-07-29 06:54] LABS: BLOOD UREA NITROGEN 23 mg/dl (7-20)
[2018-07-29 06:54] LABS: CREATININE 0.96 mg/dl (0.61-1.24)
[2018-07-29] MEDS: ENOXAPARIN 30 MG/0.3 ML SYG SC (08:57)
[2018-07-29] MEDS: DOCUSATE SODIUM 10 MG/ML (10ML CUP) PO ×2 (08:58→20:50)
[2018-07-29] MEDS: FERROUS SULFATE 60 MG/ML 5ML CUP PO (08:58)
[2018-07-29] MEDS: FINASTERIDE 5 MG TAB PO (08:59)
[2018-07-29] MEDS: CHOLECALCIFEROL 1,000 UNIT TAB PO (08:59)
[2018-07-29] MEDS: ASPIRIN 81 MG TAB PO (08:59)
[2018-07-29] MEDS: DIVALPROEX SPRINKLE 125 MG CAP PO ×3 (08:59→20:53)
[2018-07-29] MEDS: CALCIUM CARBONATE 1.25 GM TAB PO (08:59)
[2018-07-29] MEDS: CARBIDOPA/LEVODOPA (25/100) TAB PO ×2 (09:02→20:50)
[2018-07-29] MEDS: BETAMETHASONE/CLOTRIMAZOLE 15 GM CR TOP ×2 (09:09→20:54)
[2018-07-29] MEDS: TAMSULOSIN (SR) 0.4 MG CAP PO (20:50)
[2018-07-29] MEDS: ATORVASTATIN 10 MG TAB PO (20:50)
[2018-07-29] MEDS: CITALOPRAM 20 MG TAB PO (20:51)
[2018-07-30] MEDS: ALBUTEROL/IPRATROPIUM (NEB) 3 ML AMP HHN ×4 (02:00→20:17)
[2018-07-30] MEDS: DILTIAZEM 60 MG TAB GTB ×3 (06:21→21:31)
[2018-07-30] MEDS: CALCIUM CARBONATE 1.25 GM TAB PO (09:43)
[2018-07-30] MEDS: FERROUS SULFATE 60 MG/ML 5ML CUP PO (09:43)
[2018-07-30] MEDS: DOCUSATE SODIUM 10 MG/ML (10ML CUP) PO ×2 (09:43→21:27)
[2018-07-30] MEDS: ENOXAPARIN 30 MG/0.3 ML SYG SC (09:44)
[2018-07-30] MEDS: ASPIRIN 81 MG TAB PO (09:44)
[2018-07-30] MEDS: FINASTERIDE 5 MG TAB PO (09:44)
[2018-07-30] MEDS: CARBIDOPA/LEVODOPA (25/100) TAB PO ×2 (09:44→21:26)
[2018-07-30] MEDS: CHOLECALCIFEROL 1,000 UNIT TAB PO (09:44)
[2018-07-30] MEDS: DIVALPROEX SPRINKLE 125 MG CAP PO ×3 (09:44→21:25)
[2018-07-30] MEDS: BETAMETHASONE/CLOTRIMAZOLE 15 GM CR TOP ×2 (09:45→21:29)
[2018-07-30] MEDS: ATORVASTATIN 10 MG TAB PO (21:26)
[2018-07-30] MEDS: TAMSULOSIN (SR) 0.4 MG CAP PO (21:26)
[2018-07-30] MEDS: CITALOPRAM 20 MG TAB PO (21:28)
[2018-07-31] MEDS: ALBUTEROL/IPRATROPIUM (NEB) 3 ML AMP HHN ×3 (01:43→13:34)
[2018-07-31] MEDS: DILTIAZEM 60 MG TAB GTB (06:14)
[2018-07-31] MEDS: FERROUS SULFATE 60 MG/ML 5ML CUP PO (09:10)
[2018-07-31] MEDS: DIVALPROEX SPRINKLE 125 MG CAP PO ×2 (09:10→12:31)
[2018-07-31] MEDS: ASPIRIN 81 MG TAB PO (09:10)
[2018-07-31] MEDS: CARBIDOPA/LEVODOPA (25/100) TAB PO (09:10)
[2018-07-31] MEDS: CALCIUM CARBONATE 1.25 GM TAB PO (09:10)
[2018-07-31] MEDS: FINASTERIDE 5 MG TAB PO (09:10)
[2018-07-31] MEDS: CHOLECALCIFEROL 1,000 UNIT TAB PO (09:10)
[2018-07-31] MEDS: ENOXAPARIN 30 MG/0.3 ML SYG SC (09:11)
[2018-07-31] MEDS: BETAMETHASONE/CLOTRIMAZOLE 15 GM CR TOP (09:11)
[2018-07-31] MEDS: DOCUSATE SODIUM 10 MG/ML (10ML CUP) PO (09:11)
[2018-07-31] MEDS: DILTIAZEM 60 MG TAB PO (14:14)
[2018-07-31] MEDS: hydrOXYzine HCL 10 MG TAB PO (16:26)
== END 2018-07-31 20:35 | DRG 872 ==
LOC: PP2 07-26 12:20 → E/R 22:42 → PP2 07-22 03:04
DX: A41.9 Sepsis, unspecified organism (principal); N39.0 Urinary tract infection, site not specified; F02.81 Dementia in other diseases classified elsewhere, unspecified severity, with behavioral disturbance; N40.0 Benign prostatic hyperplasia without lower urinary tract symptoms; E78.5 Hyperlipidemia, unspecified; G20 Parkinson's disease; E86.0 Dehydration; E87.5 Hyperkalemia; R13.10 Dysphagia, unspecified; B95.2 Enterococcus as the cause of diseases classified elsewhere; F32.9 Major depressive disorder, single episode, unspecified; Z86.73 Personal history of transient ischemic attack (TIA), and cerebral infarction without residual deficits; Z79.82 Long term (current) use of aspirin; Z88.0 Allergy status to penicillin; Z90.49 Acquired absence of other specified parts of digestive tract
CPT/HCPCS: 36415; 71045; 80048; 80053; 80164; 81001; 82565; 83605; 84484; 84520; 85025; 85610; 85730; 87040-91; 87045; 87081; 87086; 92610; 93005; 94640; 94664; 96374; 99285-25; G0378

== ENCOUNTER 2018-09-08 16:10 | Inpatient (IN) | payer MEDICARE, OTHER ==
[2018-09-08 17:01] LABS: ADD MAN DIFF? NO
[2018-09-08 17:03] LABS: WHITE BLOOD COUNT 17.9 10^3/ul (4.8-10.8)
[2018-09-08 17:04] LABS: BASOPHIL # 0.1 10^3/ul (0.0-0.1); BASOPHILS % 0.4 % (0.0-2.0); EOSINOPHILS # 0.3 10^3/ul (0.0-0.5); EOSINOPHILS % 1.5 % (0.0-7.0); HEMATOCRIT 36.3 % (42.0-52.0); HEMOGLOBIN 11.7 g/dl (14.0-18.0); LYMPHOCYTES # 1.3 10^3/ul (0.8-2.9); MEAN CORPUSCULAR HEMOGLOBIN 30.3 pg (29.0-33.0); MEAN CORPUSCULAR HGB CONC 32.2 g/dl (32.0-37.0); MEAN PLATELET VOLUME 10.7 fl (7.4-10.4); MONOCYTE # 1.2 10^3/ul (0.3-0.9); MONOCYTES % 6.6 % (0.0-11.0); NEUTROPHILS % 83.7 % (39.0-77.0); PLATELET COUNT 341 10^3/UL (140-415); RED BLOOD COUNT 3.86 10^6/ul (4.70-6.10); RED CELL DISTRIBUTION WIDTH 14.2 % (11.5-14.5)
[2018-09-08] MEDS: ONDANSETRON 4 MG INJ IV (17:07)
[2018-09-08] MEDS: LACTATED RINGER'S 1,000 ML IV (17:07)
[2018-09-08] MEDS: morphine 4 MG/ML VIAL IV (17:07)
[2018-09-08 17:20] LABS: ALANINE AMINOTRANSFERASE 56 IU/L (13-69); ALBUMIN 3.4 g/dl (3.3-4.9); ALKALINE PHOSPHATASE 97 IU/L (42-121); ANION GAP 9 (5-13); ASPARTATE AMINO TRANSFERASE 59 IU/L (15-46); BILIRUBIN,INDIRECT 0.3 mg/dl (0-1.1); BILIRUBIN,TOTAL 0.3 mg/dl (0.2-1.3); BLOOD UREA NITROGEN 43 mg/dl (7-20); CALCIUM 8.3 mg/dl (8.4-10.2); CARBON DIOXIDE 26 mmol/L (21-31); CHLORIDE 112 mmol/L (97-110); CREATININE 1.34 mg/dl (0.61-1.24); GLUCOSE 117 mg/dl (70-220); LIPASE 27 U/L (23-300); POTASSIUM 4.7 mmol/L (3.5-5.1); SODIUM 147 mmol/L (135-144); TOTAL PROTEIN 8.2 g/dl (6.1-8.1)
[2018-09-08 17:22] LABS: INR 1.03; PROTIME 13.6 Sec (11.9-14.9); PT RATIO 1.1
[2018-09-08 17:24] LABS: PARTIAL THROMBOPLASTIN TIME 69.6 Sec (23.0-35.0)
[2018-09-08] MEDS: CEFEPIME 1GM/50 ML (PMX) 50 ML IVPB (17:26)
[2018-09-08] MEDS: ACETAMINOPHEN 650 MG SUPP PR (17:26)
[2018-09-08 17:32] LABS: TROPONIN-I < 0.012 ng/ml (0.000-0.120)
[2018-09-08 17:47] LABS: ADD UMIC YES; UR ASCORBIC ACID NEGATIVE (NEGATIVE); UR BACTERIA FEW /HPF (NONE SEEN); UR BILIRUBIN (Dip) NEGATIVE (NEGATIVE); UR BLOOD (Dip) 1+ mg/dL (NEGATIVE); UR CLARITY TURBID (CLEAR); UR COLOR AMBER (YELLOW); UR GLUCOSE (Dip) NEGATIVE (NEGATIVE); UR KETONES (Dip) NEGATIVE (NEGATIVE); UR LEUKOCYTE ESTERASE (Dip) 3+ Leu/ul (NEGATIVE); UR MUCUS FEW /HPF (NONE SEEN); UR NITRITE (Dip) POSITIVE (NEGATIVE); UR RBC 10 /HPF (0-5); UR SPECIFIC GRAVITY (Dip) 1.013 (1.003-1.030); UR TOTAL PROTEIN (Dip) 2+ mg/dl (NEGATIVE); UR UROBILINOGEN (Dip) NEGATIVE (NEGATIVE); UR WBC > 182 /HPF (0-5)
[2018-09-08] MEDS: VANCOMYCIN 1 GM (PMX) 250 ML IVPB (18:13)
[2018-09-08] MEDS: SODIUM CHLORIDE 0.9% 1L BAG IV* (18:13)
[2018-09-08 19:47] LABS: LACTIC ACID 1.3 mmol/L (0.5-2.0)
[2018-09-08 22:38] LABS: LACTIC ACID 0.7 mmol/L (0.5-2.0)
[2018-09-09] MEDS ORDERED: ACETAMINOPHEN 325 MG TAB PO ×2 (00:30→17:30)
[2018-09-09] MEDS ORDERED: VANCOMYCIN IV PER PHARMACY XX (00:30)
[2018-09-09] MEDS: DEXTROSE 5%-0.45% NACL 1,000 ML IV ×2 (01:08→13:04)
[2018-09-09] MEDS: MEROPENEM 1 GM/50ML(PMX) 50 ML IVPB ×3 (05:10→21:25)
[2018-09-09 06:29] LABS: ADD MAN DIFF? NO
[2018-09-09 06:44] LABS: WHITE BLOOD COUNT 17.1 10^3/ul (4.8-10.8)
[2018-09-09 06:44] LABS: BASOPHIL # 0.1 10^3/ul (0.0-0.1); BASOPHILS % 0.4 % (0.0-2.0); EOSINOPHILS # 0.4 10^3/ul (0.0-0.5); EOSINOPHILS % 2.5 % (0.0-7.0); HEMATOCRIT 31.5 % (42.0-52.0); HEMOGLOBIN 10.2 g/dl (14.0-18.0); LYMPHOCYTES # 1.1 10^3/ul (0.8-2.9); LYMPHOCYTES % 6.2 % (15.0-51.0); MEAN CORPUSCULAR HEMOGLOBIN 30.5 pg (29.0-33.0); MEAN CORPUSCULAR HGB CONC 32.4 g/dl (32.0-37.0); MEAN CORPUSCULAR VOLUME 94.3 fl (82.0-101.0); MEAN PLATELET VOLUME 10.1 fl (7.4-10.4); MONOCYTES % 5.9 % (0.0-11.0); NEUTROPHIL # 14.4 10^3/ul (1.6-7.5); NEUTROPHILS % 84.2 % (39.0-77.0); PLATELET COUNT 307 10^3/UL (140-415); RED BLOOD COUNT 3.34 10^6/ul (4.70-6.10); RED CELL DISTRIBUTION WIDTH 14.3 % (11.5-14.5)
[2018-09-09 07:26] LABS: ANION GAP 4 (5-13); BLOOD UREA NITROGEN 34 mg/dl (7-20); CALCIUM 8.2 mg/dl (8.4-10.2); CARBON DIOXIDE 28 mmol/L (21-31); CHLORIDE 115 mmol/L (97-110); CREATININE 1.07 mg/dl (0.61-1.24); GLUCOSE 101 mg/dl (70-220); POTASSIUM 4.5 mmol/L (3.5-5.1); SODIUM 147 mmol/L (135-144)
[2018-09-09] MEDS: ENOXAPARIN 30 MG/0.3 ML SYG SC (09:19)
[2018-09-09] MEDS: VANCOMYCIN HCL 1.25 GM in SOD CHLORIDE 0.9% 250 ML IVPB (15:16)
[2018-09-09] MEDS ORDERED: ALBUTEROL 0.083% (NEB) 2.5 MG/3 ML AMP NEB (17:30)
[2018-09-09] MEDS ORDERED: hydrOXYzine HCL 10 MG TAB PO (17:30)
[2018-09-09] MEDS ORDERED: ENOXAPARIN 30 MG/0.3 ML SYG SC (17:30)
[2018-09-09] MEDS: DILTIAZEM (SR) 60 MG CAP PO (19:15)
[2018-09-09] MEDS: CARBIDOPA/LEVODOPA (25/100) TAB PO ×2 (21:00→21:25)
[2018-09-09] MEDS: ATORVASTATIN 10 MG TAB PO ×2 (21:00→21:24)
[2018-09-09] MEDS ORDERED: DIVALPROEX (EC) 125 MG TAB PO (21:00)
[2018-09-09] MEDS: FAMOTIDINE 20 MG INJ IV (21:24)
[2018-09-09] MEDS ORDERED: DILTIAZEM (SR) 60 MG CAP PO (21:30)
[2018-09-10] MEDS: VALPROATE INJ 250 MG in SOD CHLORIDE 0.9% 50 ML IVPB ×4 (00:35→20:50)
[2018-09-10] MEDS: DIPHENHYDRAMINE 50 MG INJ IV (01:32)
[2018-09-10] MEDS: DEXTROSE 5%-0.45% NACL 1,000 ML IV ×2 (03:10→16:28)
[2018-09-10] MEDS: MEROPENEM 1 GM/50ML(PMX) 50 ML IVPB ×3 (05:02→20:50)
[2018-09-10 05:50] LABS: ADD MAN DIFF? NO
[2018-09-10 05:53] LABS: BASOPHIL # 0.1 10^3/ul (0.0-0.1); BASOPHILS % 0.3 % (0.0-2.0); EOSINOPHILS # 0.4 10^3/ul (0.0-0.5); EOSINOPHILS % 2.2 % (0.0-7.0); HEMATOCRIT 32.4 % (42.0-52.0); HEMOGLOBIN 10.4 g/dl (14.0-18.0); LYMPHOCYTES # 1.1 10^3/ul (0.8-2.9); LYMPHOCYTES % 6.3 % (15.0-51.0); MEAN CORPUSCULAR HEMOGLOBIN 29.8 pg (29.0-33.0); MEAN CORPUSCULAR HGB CONC 32.1 g/dl (32.0-37.0); MEAN CORPUSCULAR VOLUME 92.8 fl (82.0-101.0); MEAN PLATELET VOLUME 9.8 fl (7.4-10.4); MONOCYTE # 0.9 10^3/ul (0.3-0.9); MONOCYTES % 4.9 % (0.0-11.0); NEUTROPHIL # 14.6 10^3/ul (1.6-7.5); NEUTROPHILS % 85.1 % (39.0-77.0); PLATELET COUNT 322 10^3/UL (140-415); RED BLOOD COUNT 3.49 10^6/ul (4.70-6.10); RED CELL DISTRIBUTION WIDTH 14.4 % (11.5-14.5)
[2018-09-10 05:53] LABS: WHITE BLOOD COUNT 17.2 10^3/ul (4.8-10.8)
[2018-09-10] MEDS ORDERED: PANTOPRAZOLE 40 MG INJ IV (06:00)
[2018-09-10 06:41] LABS: ANION GAP 5 (5-13); BLOOD UREA NITROGEN 31 mg/dl (7-20); CALCIUM 8.3 mg/dl (8.4-10.2); CARBON DIOXIDE 29 mmol/L (21-31); CHLORIDE 115 mmol/L (97-110); GLUCOSE 99 mg/dl (70-220); POTASSIUM 4.3 mmol/L (3.5-5.1); SODIUM 149 mmol/L (135-144)
[2018-09-10 06:42] LABS: B-TYPE NATRIURETIC PEPTIDE 6640 PG/ML (0-450)
[2018-09-10] MEDS: FAMOTIDINE 20 MG INJ IV ×2 (08:36→20:49)
[2018-09-10] MEDS: CITALOPRAM 20 MG TAB PO (09:00)
[2018-09-10] MEDS ORDERED: CA CARBONATE (250 MG/ML) 5ML CUP PO (09:00)
[2018-09-10] MEDS: CARBIDOPA/LEVODOPA (25/100) TAB PO ×2 (09:00→20:48)
[2018-09-10] MEDS: FINASTERIDE 5 MG TAB PO (09:00)
[2018-09-10] MEDS: CALCIUM CARBONATE 1.25 GM TAB PO (09:00)
[2018-09-10] MEDS: FERROUS SULFATE (EC) 325 MG TAB PO (09:00)
[2018-09-10] MEDS: CHOLECALCIFEROL 1,000 UNIT TAB PO (09:00)
[2018-09-10] MEDS: ENOXAPARIN 30 MG/0.3 ML SYG SC (10:40)
[2018-09-10] MEDS: MUPIROCIN 2% 22 GM OINT TOP ×2 (11:09→20:50)
[2018-09-10] MEDS: VANCOMYCIN HCL 1.25 GM in SOD CHLORIDE 0.9% 250 ML IVPB (17:43)
[2018-09-10] MEDS: ATORVASTATIN 10 MG TAB PO (20:48)
[2018-09-11] MEDS: DEXTROSE 5%-0.45% NACL 1,000 ML IV ×2 (05:31→19:10)
[2018-09-11] MEDS: VALPROATE INJ 250 MG in SOD CHLORIDE 0.9% 50 ML IVPB ×3 (05:31→20:39)
[2018-09-11] MEDS: MEROPENEM 1 GM/50ML(PMX) 50 ML IVPB ×3 (05:32→22:03)
[2018-09-11] MEDS: LIDOCAINE 1% (MPF) 5 ML VIAL SC ×2 (08:00→12:00)
[2018-09-11] MEDS: FAMOTIDINE 20 MG INJ IV ×2 (08:13→20:39)
[2018-09-11] MEDS: CALCIUM CARBONATE 1.25 GM TAB PO ×2 (08:14→09:24)
[2018-09-11] MEDS: CHOLECALCIFEROL 1,000 UNIT TAB PO ×2 (08:14→09:24)
[2018-09-11] MEDS: FERROUS SULFATE (EC) 325 MG TAB PO ×2 (08:14→09:24)
[2018-09-11] MEDS: FINASTERIDE 5 MG TAB PO ×2 (08:14→09:25)
[2018-09-11] MEDS: CITALOPRAM 20 MG TAB PO ×2 (08:14→09:24)
[2018-09-11] MEDS: CARBIDOPA/LEVODOPA (25/100) TAB PO ×3 (08:14→20:39)
[2018-09-11] MEDS: MUPIROCIN 2% 22 GM OINT TOP ×2 (08:57→20:40)
[2018-09-11] MEDS: ENOXAPARIN 30 MG/0.3 ML SYG SC (09:05)
[2018-09-11 17:16] LABS: VANCOMYCIN,TROUGH 5.5 ug/ml (10.0-20.0)
[2018-09-11] MEDS ORDERED: CLINDAMYCIN 600 MG/D5W (PMX) 50 ML IVPB (18:26)
[2018-09-11] MEDS ORDERED: LIDOCAINE 2% (SDV) 5 ML INJ (18:26)
[2018-09-11] MEDS ORDERED: PROPOFOL 20 ML (18:26)
[2018-09-11] MEDS: ATORVASTATIN 10 MG TAB PO (20:39)
[2018-09-11] MEDS: VANCOMYCIN HCL 1.5 GM in SOD CHLORIDE 0.9% 250 ML IVPB (20:46)
[2018-09-11] MEDS: morphine 2 MG INJ IV (22:08)
[2018-09-12] MEDS: MEROPENEM 1 GM/50ML(PMX) 50 ML IVPB ×3 (05:53→22:44)
[2018-09-12] MEDS: VALPROATE INJ 250 MG in SOD CHLORIDE 0.9% 50 ML IVPB ×3 (05:53→23:58)
[2018-09-12 06:22] LABS: ADD MAN DIFF? NO
[2018-09-12 06:24] LABS: BASOPHILS % 0.3 % (0.0-2.0); EOSINOPHILS # 0.4 10^3/ul (0.0-0.5); HEMATOCRIT 31.1 % (42.0-52.0); LYMPHOCYTES # 1.4 10^3/ul (0.8-2.9); MEAN CORPUSCULAR HEMOGLOBIN 29.7 pg (29.0-33.0); MEAN CORPUSCULAR HGB CONC 32.2 g/dl (32.0-37.0); MEAN CORPUSCULAR VOLUME 92.3 fl (82.0-101.0); MEAN PLATELET VOLUME 9.9 fl (7.4-10.4); MONOCYTE # 0.7 10^3/ul (0.3-0.9); MONOCYTES % 5.1 % (0.0-11.0); NEUTROPHIL # 11.3 10^3/ul (1.6-7.5); NEUTROPHILS % 80.4 % (39.0-77.0); PLATELET COUNT 377 10^3/UL (140-415); RED BLOOD COUNT 3.37 10^6/ul (4.70-6.10); RED CELL DISTRIBUTION WIDTH 13.9 % (11.5-14.5)
[2018-09-12 06:56] LABS: ANION GAP 4 (5-13); BLOOD UREA NITROGEN 30 mg/dl (7-20); CALCIUM 7.8 mg/dl (8.4-10.2); CARBON DIOXIDE 27 mmol/L (21-31); CHLORIDE 112 mmol/L (97-110); CREATININE 1.08 mg/dl (0.61-1.24); GLUCOSE 104 mg/dl (70-220); SODIUM 143 mmol/L (135-144)
[2018-09-12] MEDS: CARBIDOPA/LEVODOPA (25/100) TAB PO ×2 (09:03→21:37)
[2018-09-12] MEDS: FERROUS SULFATE (EC) 325 MG TAB PO (09:03)
[2018-09-12] MEDS: CHOLECALCIFEROL 1,000 UNIT TAB PO (09:03)
[2018-09-12] MEDS: FAMOTIDINE 20 MG INJ IV ×2 (09:03→21:36)
[2018-09-12] MEDS: CITALOPRAM 20 MG TAB PO (09:03)
[2018-09-12] MEDS: DAKINS 0.0125%(1/40) 473 ML SOLUTION TP (09:03)
[2018-09-12] MEDS: FINASTERIDE 5 MG TAB PO (09:03)
[2018-09-12] MEDS: CALCIUM CARBONATE 1.25 GM TAB PO (09:03)
[2018-09-12] MEDS: MUPIROCIN 2% 22 GM OINT TOP ×2 (09:04→21:46)
[2018-09-12] MEDS: ENOXAPARIN 30 MG/0.3 ML SYG SC (10:11)
[2018-09-12] MEDS: CEFEPIME 1GM/50 ML (PMX) 50 ML IVPB (21:36)
[2018-09-12] MEDS: ATORVASTATIN 10 MG TAB PO (21:37)
[2018-09-12] MEDS: RIFAMPIN 300 MG CAP PO (21:40)
[2018-09-12] MEDS: VANCOMYCIN HCL 1.5 GM in SOD CHLORIDE 0.9% 250 ML IVPB (22:54)
[2018-09-13] MEDS: VALPROATE INJ 250 MG in SOD CHLORIDE 0.9% 50 ML IVPB ×3 (05:51→22:28)
[2018-09-13] MEDS: MEROPENEM 1 GM/50ML(PMX) 50 ML IVPB ×2 (05:52→13:04)
[2018-09-13 06:05] LABS: ADD MAN DIFF? NO
[2018-09-13 06:09] LABS: BASOPHIL # 0.1 10^3/ul (0.0-0.1); BASOPHILS % 0.3 % (0.0-2.0); EOSINOPHILS # 0.4 10^3/ul (0.0-0.5); EOSINOPHILS % 2.2 % (0.0-7.0); HEMOGLOBIN 10.9 g/dl (14.0-18.0); LYMPHOCYTES # 0.9 10^3/ul (0.8-2.9); LYMPHOCYTES % 4.9 % (15.0-51.0); MEAN CORPUSCULAR HEMOGLOBIN 29.9 pg (29.0-33.0); MEAN CORPUSCULAR VOLUME 90.4 fl (82.0-101.0); MEAN PLATELET VOLUME 9.4 fl (7.4-10.4); MONOCYTE # 0.7 10^3/ul (0.3-0.9); MONOCYTES % 3.9 % (0.0-11.0); NEUTROPHIL # 16.3 10^3/ul (1.6-7.5); NEUTROPHILS % 87.3 % (39.0-77.0); PLATELET COUNT 395 10^3/UL (140-415); RED BLOOD COUNT 3.65 10^6/ul (4.70-6.10); RED CELL DISTRIBUTION WIDTH 13.4 % (11.5-14.5)
[2018-09-13 06:09] LABS: WHITE BLOOD COUNT 18.7 10^3/ul (4.8-10.8)
[2018-09-13 06:32] LABS: ANION GAP 6 (5-13); BLOOD UREA NITROGEN 23 mg/dl (7-20); CARBON DIOXIDE 26 mmol/L (21-31); CHLORIDE 106 mmol/L (97-110); CREATININE 0.84 mg/dl (0.61-1.24); GLUCOSE 95 mg/dl (70-220); POTASSIUM 4.1 mmol/L (3.5-5.1); SODIUM 138 mmol/L (135-144)
[2018-09-13] MEDS: CITALOPRAM 20 MG TAB PO (09:12)
[2018-09-13] MEDS: CHOLECALCIFEROL 1,000 UNIT TAB PO (09:12)
[2018-09-13] MEDS: CALCIUM CARBONATE 1.25 GM TAB PO (09:12)
[2018-09-13] MEDS: RIFAMPIN 300 MG CAP PO ×2 (09:13→22:11)
[2018-09-13] MEDS: FERROUS SULFATE (EC) 325 MG TAB PO (09:13)
[2018-09-13] MEDS: FINASTERIDE 5 MG TAB PO (09:13)
[2018-09-13] MEDS: CARBIDOPA/LEVODOPA (25/100) TAB PO ×2 (09:13→22:11)
[2018-09-13] MEDS: FAMOTIDINE 20 MG INJ IV (09:18)
[2018-09-13] MEDS: MUPIROCIN 2% 22 GM OINT TOP ×2 (09:18→21:00)
[2018-09-13] MEDS: CEFEPIME 1GM/50 ML (PMX) 50 ML IVPB ×2 (09:18→22:10)
[2018-09-13] MEDS: DAKINS 0.0125%(1/40) 473 ML SOLUTION TP (09:19)
[2018-09-13] MEDS: ENOXAPARIN 30 MG/0.3 ML SYG SC (09:27)
[2018-09-13] MEDS: FAMOTIDINE 20 MG TAB PO (22:11)
[2018-09-13] MEDS: VANCOMYCIN HCL 1.5 GM in SOD CHLORIDE 0.9% 250 ML IVPB (22:11)
[2018-09-13] MEDS: ATORVASTATIN 10 MG TAB PO (22:11)
[2018-09-13] MEDS: LORAZEPAM 2 MG INJ IV (22:26)
[2018-09-13] MEDS: DIPHENHYDRAMINE 50 MG INJ IV (22:26)
[2018-09-14 05:53] LABS: ADD MAN DIFF? NO
[2018-09-14 06:05] LABS: BASOPHILS % 0.3 % (0.0-2.0); EOSINOPHILS # 0.4 10^3/ul (0.0-0.5); EOSINOPHILS % 3.2 % (0.0-7.0); HEMATOCRIT 32.8 % (42.0-52.0); HEMOGLOBIN 10.7 g/dl (14.0-18.0); LYMPHOCYTES # 1.2 10^3/ul (0.8-2.9); LYMPHOCYTES % 9.7 % (15.0-51.0); MEAN CORPUSCULAR HEMOGLOBIN 29.6 pg (29.0-33.0); MEAN CORPUSCULAR HGB CONC 32.6 g/dl (32.0-37.0); MEAN CORPUSCULAR VOLUME 90.9 fl (82.0-101.0); MEAN PLATELET VOLUME 9.6 fl (7.4-10.4); MONOCYTE # 0.5 10^3/ul (0.3-0.9); MONOCYTES % 4.1 % (0.0-11.0); NEUTROPHILS % 81.3 % (39.0-77.0); PLATELET COUNT 348 10^3/UL (140-415); RED BLOOD COUNT 3.61 10^6/ul (4.70-6.10); RED CELL DISTRIBUTION WIDTH 13.7 % (11.5-14.5)
[2018-09-14 06:05] LABS: WHITE BLOOD COUNT 12.3 10^3/ul (4.8-10.8)
[2018-09-14 06:24] LABS: ANION GAP 5 (5-13); BLOOD UREA NITROGEN 21 mg/dl (7-20); CARBON DIOXIDE 29 mmol/L (21-31); CHLORIDE 106 mmol/L (97-110); CREATININE 0.95 mg/dl (0.61-1.24); GLUCOSE 89 mg/dl (70-220); SODIUM 140 mmol/L (135-144)
[2018-09-14] MEDS: VALPROATE INJ 250 MG in SOD CHLORIDE 0.9% 50 ML IVPB ×3 (06:45→22:14)
[2018-09-14] MEDS: CITALOPRAM 20 MG TAB PO (08:06)
[2018-09-14] MEDS: FINASTERIDE 5 MG TAB PO (08:06)
[2018-09-14] MEDS: CHOLECALCIFEROL 1,000 UNIT TAB PO (08:06)
[2018-09-14] MEDS: CALCIUM CARBONATE 1.25 GM TAB PO (08:06)
[2018-09-14] MEDS: FAMOTIDINE 20 MG TAB PO ×2 (08:06→21:33)
[2018-09-14] MEDS: FERROUS SULFATE (EC) 325 MG TAB PO (08:06)
[2018-09-14] MEDS: RIFAMPIN 300 MG CAP PO ×2 (08:07→21:33)
[2018-09-14] MEDS: CEFEPIME 1GM/50 ML (PMX) 50 ML IVPB ×2 (08:07→21:29)
[2018-09-14] MEDS: MUPIROCIN 2% 22 GM OINT TOP ×2 (08:07→21:41)
[2018-09-14] MEDS: DAKINS 0.0125%(1/40) 473 ML SOLUTION TP (08:07)
[2018-09-14] MEDS: LORAZEPAM 2 MG INJ IV ×2 (08:11→21:30)
[2018-09-14] MEDS: ENOXAPARIN 30 MG/0.3 ML SYG SC (08:22)
[2018-09-14] MEDS: CARBIDOPA/LEVODOPA (25/100) TAB PO ×2 (08:22→21:33)
[2018-09-14 20:29] LABS: VANCOMYCIN,TROUGH 16.7 ug/ml (10.0-20.0)
[2018-09-14] MEDS: VANCOMYCIN HCL 1.5 GM in SOD CHLORIDE 0.9% 250 ML IVPB (21:29)
[2018-09-14] MEDS: ATORVASTATIN 10 MG TAB PO (21:32)
[2018-09-14] MEDS: DIPHENHYDRAMINE 50 MG INJ IV (22:10)
[2018-09-15 05:06] LABS: ADD MAN DIFF? NO
[2018-09-15 05:08] LABS: WHITE BLOOD COUNT 12.3 10^3/ul (4.8-10.8)
[2018-09-15 05:08] LABS: BASOPHIL # 0.1 10^3/ul (0.0-0.1); BASOPHILS % 0.5 % (0.0-2.0); EOSINOPHILS # 0.5 10^3/ul (0.0-0.5); EOSINOPHILS % 3.7 % (0.0-7.0); HEMATOCRIT 32.1 % (42.0-52.0); HEMOGLOBIN 10.5 g/dl (14.0-18.0); LYMPHOCYTES # 1.3 10^3/ul (0.8-2.9); LYMPHOCYTES % 10.8 % (15.0-51.0); MEAN CORPUSCULAR HEMOGLOBIN 29.9 pg (29.0-33.0); MEAN CORPUSCULAR HGB CONC 32.7 g/dl (32.0-37.0); MEAN CORPUSCULAR VOLUME 91.5 fl (82.0-101.0); MEAN PLATELET VOLUME 9.4 fl (7.4-10.4); MONOCYTE # 0.6 10^3/ul (0.3-0.9); MONOCYTES % 4.7 % (0.0-11.0); NEUTROPHIL # 9.7 10^3/ul (1.6-7.5); NEUTROPHILS % 78.8 % (39.0-77.0); PLATELET COUNT 348 10^3/UL (140-415); RED BLOOD COUNT 3.51 10^6/ul (4.70-6.10); RED CELL DISTRIBUTION WIDTH 13.7 % (11.5-14.5)
[2018-09-15 05:31] LABS: ANION GAP 5 (5-13); BLOOD UREA NITROGEN 21 mg/dl (7-20); CALCIUM 8.1 mg/dl (8.4-10.2); CARBON DIOXIDE 29 mmol/L (21-31); CHLORIDE 103 mmol/L (97-110); CREATININE 0.91 mg/dl (0.61-1.24); GLUCOSE 84 mg/dl (70-220); POTASSIUM 4.2 mmol/L (3.5-5.1); SODIUM 137 mmol/L (135-144)
[2018-09-15] MEDS: VALPROATE INJ 250 MG in SOD CHLORIDE 0.9% 50 ML IVPB ×3 (06:15→22:25)
[2018-09-15] MEDS: DIPHENHYDRAMINE 50 MG INJ IV ×2 (06:33→21:16)
[2018-09-15] MEDS: CALCIUM CARBONATE 1.25 GM TAB PO (09:00)
[2018-09-15] MEDS: CARBIDOPA/LEVODOPA (25/100) TAB PO ×2 (10:33→20:51)
[2018-09-15] MEDS: RIFAMPIN 300 MG CAP PO ×2 (10:33→20:51)
[2018-09-15] MEDS: FAMOTIDINE 20 MG TAB PO ×2 (10:33→20:51)
[2018-09-15] MEDS: FINASTERIDE 5 MG TAB PO (10:33)
[2018-09-15] MEDS: CITALOPRAM 20 MG TAB PO (10:34)
[2018-09-15] MEDS: CEFEPIME 1GM/50 ML (PMX) 50 ML IVPB ×2 (10:34→20:45)
[2018-09-15] MEDS: FERROUS SULFATE (EC) 325 MG TAB PO (10:42)
[2018-09-15] MEDS: CHOLECALCIFEROL 1,000 UNIT TAB PO (10:43)
[2018-09-15] MEDS: DAKINS 0.0125%(1/40) 473 ML SOLUTION TP (10:47)
[2018-09-15] MEDS: ENOXAPARIN 30 MG/0.3 ML SYG SC (10:51)
[2018-09-15] MEDS: MUPIROCIN 2% 22 GM OINT TOP ×2 (14:35→20:52)
[2018-09-15] MEDS: VANCOMYCIN HCL 1.5 GM in SOD CHLORIDE 0.9% 250 ML IVPB (20:50)
[2018-09-15] MEDS: ATORVASTATIN 10 MG TAB PO (20:51)
[2018-09-15] MEDS: LORAZEPAM 2 MG INJ IV (22:55)
[2018-09-16] MEDS: VALPROATE INJ 250 MG in SOD CHLORIDE 0.9% 50 ML IVPB ×3 (05:31→22:53)
[2018-09-16 06:07] LABS: ADD MAN DIFF? NO
[2018-09-16 06:09] LABS: WHITE BLOOD COUNT 10.5 10^3/ul (4.8-10.8)
[2018-09-16 06:09] LABS: BASOPHIL # 0.1 10^3/ul (0.0-0.1); BASOPHILS % 0.5 % (0.0-2.0); EOSINOPHILS # 0.4 10^3/ul (0.0-0.5); EOSINOPHILS % 3.6 % (0.0-7.0); HEMOGLOBIN 11.3 g/dl (14.0-18.0); LYMPHOCYTES # 1.6 10^3/ul (0.8-2.9); LYMPHOCYTES % 15.3 % (15.0-51.0); MEAN CORPUSCULAR HEMOGLOBIN 29.7 pg (29.0-33.0); MEAN CORPUSCULAR HGB CONC 32.3 g/dl (32.0-37.0); MEAN CORPUSCULAR VOLUME 91.9 fl (82.0-101.0); MEAN PLATELET VOLUME 9.4 fl (7.4-10.4); MONOCYTE # 0.6 10^3/ul (0.3-0.9); MONOCYTES % 6.1 % (0.0-11.0); NEUTROPHIL # 7.7 10^3/ul (1.6-7.5); NEUTROPHILS % 73.1 % (39.0-77.0); PLATELET COUNT 367 10^3/UL (140-415); RED BLOOD COUNT 3.81 10^6/ul (4.70-6.10); RED CELL DISTRIBUTION WIDTH 13.7 % (11.5-14.5)
[2018-09-16 07:00] LABS: ANION GAP 7 (5-13); BLOOD UREA NITROGEN 22 mg/dl (7-20); CALCIUM 8.6 mg/dl (8.4-10.2); CARBON DIOXIDE 30 mmol/L (21-31); CHLORIDE 104 mmol/L (97-110); CREATININE 1.07 mg/dl (0.61-1.24); GLUCOSE 86 mg/dl (70-220); POTASSIUM 4.9 mmol/L (3.5-5.1); SODIUM 141 mmol/L (135-144)
[2018-09-16] MEDS: FINASTERIDE 5 MG TAB PO (08:39)
[2018-09-16] MEDS: RIFAMPIN 300 MG CAP PO ×2 (08:39→20:57)
[2018-09-16] MEDS: CALCIUM CARBONATE 1.25 GM TAB PO (08:39)
[2018-09-16] MEDS: FAMOTIDINE 20 MG TAB PO ×2 (08:39→20:56)
[2018-09-16] MEDS: CARBIDOPA/LEVODOPA (25/100) TAB PO ×2 (08:39→20:56)
[2018-09-16] MEDS: FERROUS SULFATE (EC) 325 MG TAB PO (08:40)
[2018-09-16] MEDS: MUPIROCIN 2% 22 GM OINT TOP ×2 (08:40→20:57)
[2018-09-16] MEDS: CITALOPRAM 20 MG TAB PO (08:40)
[2018-09-16] MEDS: CHOLECALCIFEROL 1,000 UNIT TAB PO (08:40)
[2018-09-16] MEDS: CEFEPIME 1GM/50 ML (PMX) 50 ML IVPB ×2 (08:40→20:56)
[2018-09-16] MEDS: ENOXAPARIN 30 MG/0.3 ML SYG SC (09:08)
[2018-09-16] MEDS: DAKINS 0.0125%(1/40) 473 ML SOLUTION TP (09:09)
[2018-09-16] MEDS: LORAZEPAM 2 MG INJ IV (19:28)
[2018-09-16] MEDS: ATORVASTATIN 10 MG TAB PO (20:56)
[2018-09-16] MEDS: VANCOMYCIN HCL 1.5 GM in SOD CHLORIDE 0.9% 250 ML IVPB (21:42)
[2018-09-17] MEDS: VALPROATE INJ 250 MG in SOD CHLORIDE 0.9% 50 ML IVPB ×3 (06:11→21:48)
[2018-09-17] MEDS: CEFEPIME 1GM/50 ML (PMX) 50 ML IVPB ×2 (08:44→21:25)
[2018-09-17] MEDS: FINASTERIDE 5 MG TAB PO (08:45)
[2018-09-17] MEDS: FERROUS SULFATE (EC) 325 MG TAB PO (08:45)
[2018-09-17] MEDS: CITALOPRAM 20 MG TAB PO (08:45)
[2018-09-17] MEDS: CHOLECALCIFEROL 1,000 UNIT TAB PO (08:45)
[2018-09-17] MEDS: RIFAMPIN 300 MG CAP PO ×2 (08:45→21:25)
[2018-09-17] MEDS: FAMOTIDINE 20 MG TAB PO ×2 (08:45→21:25)
[2018-09-17] MEDS: CALCIUM CARBONATE 1.25 GM TAB PO (08:45)
[2018-09-17] MEDS: CARBIDOPA/LEVODOPA (25/100) TAB PO ×2 (08:45→21:25)
[2018-09-17] MEDS: DAKINS 0.0125%(1/40) 473 ML SOLUTION TP (08:46)
[2018-09-17] MEDS: ENOXAPARIN 30 MG/0.3 ML SYG SC (09:02)
[2018-09-17] MEDS: ATORVASTATIN 10 MG TAB PO (21:25)
[2018-09-17] MEDS: VANCOMYCIN HCL 1.5 GM in SOD CHLORIDE 0.9% 250 ML IVPB (21:28)
[2018-09-18] MEDS: VALPROATE INJ 250 MG in SOD CHLORIDE 0.9% 50 ML IVPB ×3 (05:31→21:02)
[2018-09-18] MEDS: RIFAMPIN 300 MG CAP PO ×2 (08:23→20:35)
[2018-09-18] MEDS: CALCIUM CARBONATE 1.25 GM TAB PO (08:23)
[2018-09-18] MEDS: FINASTERIDE 5 MG TAB PO (08:23)
[2018-09-18] MEDS: FERROUS SULFATE (EC) 325 MG TAB PO (08:23)
[2018-09-18] MEDS: FAMOTIDINE 20 MG TAB PO ×2 (08:23→20:35)
[2018-09-18] MEDS: CARBIDOPA/LEVODOPA (25/100) TAB PO ×2 (08:23→20:35)
[2018-09-18] MEDS: CHOLECALCIFEROL 1,000 UNIT TAB PO (08:23)
[2018-09-18] MEDS: CITALOPRAM 20 MG TAB PO (08:23)
[2018-09-18] MEDS: DAKINS 0.0125%(1/40) 473 ML SOLUTION TP (08:24)
[2018-09-18] MEDS: CEFEPIME 1GM/50 ML (PMX) 50 ML IVPB ×2 (08:24→20:32)
[2018-09-18] MEDS: ENOXAPARIN 30 MG/0.3 ML SYG SC (08:35)
[2018-09-18] MEDS: ATORVASTATIN 10 MG TAB PO (20:35)
[2018-09-18] MEDS: VANCOMYCIN HCL 1.5 GM in SOD CHLORIDE 0.9% 250 ML IVPB (20:41)
[2018-09-18 21:00] LABS: VANCOMYCIN,TROUGH 23.2 ug/ml (10.0-20.0)
[2018-09-19] MEDS: VALPROATE INJ 250 MG in SOD CHLORIDE 0.9% 50 ML IVPB ×3 (05:09→20:49)
[2018-09-19 07:02] LABS: CREATININE 1.03 mg/dl (0.61-1.24)
[2018-09-19 07:02] LABS: BLOOD UREA NITROGEN 19 mg/dl (7-20)
[2018-09-19] MEDS: CEFEPIME 1GM/50 ML (PMX) 50 ML IVPB ×2 (08:41→20:47)
[2018-09-19] MEDS: VANCOMYCIN 1 GM 250 ML IVPB (08:41)
[2018-09-19] MEDS: CITALOPRAM 20 MG TAB PO (08:44)
[2018-09-19] MEDS: CHOLECALCIFEROL 1,000 UNIT TAB PO (08:44)
[2018-09-19] MEDS: CALCIUM CARBONATE 1.25 GM TAB PO (08:45)
[2018-09-19] MEDS: FINASTERIDE 5 MG TAB PO (08:45)
[2018-09-19] MEDS: FERROUS SULFATE (EC) 325 MG TAB PO (08:45)
[2018-09-19] MEDS: CARBIDOPA/LEVODOPA (25/100) TAB PO ×2 (08:45→20:49)
[2018-09-19] MEDS: FAMOTIDINE 20 MG TAB PO ×2 (08:45→20:49)
[2018-09-19] MEDS: RIFAMPIN 300 MG CAP PO ×2 (08:45→20:49)
[2018-09-19] MEDS: DAKINS 0.0125%(1/40) 473 ML SOLUTION TP (08:47)
[2018-09-19] MEDS: ENOXAPARIN 30 MG/0.3 ML SYG SC (08:54)
[2018-09-19] MEDS: ASCORBIC ACID 500 MG TAB PO (12:12)
[2018-09-19] MEDS: ZINC SULFATE 220 MG CAP PO (12:12)
[2018-09-19] MEDS: ATORVASTATIN 10 MG TAB PO (20:48)
[2018-09-20] MEDS: VALPROATE INJ 250 MG in SOD CHLORIDE 0.9% 50 ML IVPB ×3 (05:26→21:02)
[2018-09-20 07:18] LABS: ADD MAN DIFF? NO
[2018-09-20 07:22] LABS: WHITE BLOOD COUNT 11.7 10^3/ul (4.8-10.8)
[2018-09-20 07:22] LABS: BASOPHIL # 0.1 10^3/ul (0.0-0.1); BASOPHILS % 0.7 % (0.0-2.0); EOSINOPHILS # 0.4 10^3/ul (0.0-0.5); EOSINOPHILS % 3.7 % (0.0-7.0); HEMATOCRIT 35.5 % (42.0-52.0); HEMOGLOBIN 11.5 g/dl (14.0-18.0); LYMPHOCYTES # 1.6 10^3/ul (0.8-2.9); LYMPHOCYTES % 13.7 % (15.0-51.0); MEAN CORPUSCULAR HEMOGLOBIN 29.9 pg (29.0-33.0); MEAN CORPUSCULAR HGB CONC 32.4 g/dl (32.0-37.0); MEAN CORPUSCULAR VOLUME 92.2 fl (82.0-101.0); MEAN PLATELET VOLUME 9.7 fl (7.4-10.4); MONOCYTE # 0.8 10^3/ul (0.3-0.9); MONOCYTES % 6.7 % (0.0-11.0); NEUTROPHIL # 8.7 10^3/ul (1.6-7.5); NEUTROPHILS % 74.5 % (39.0-77.0); PLATELET COUNT 334 10^3/UL (140-415); RED BLOOD COUNT 3.85 10^6/ul (4.70-6.10); RED CELL DISTRIBUTION WIDTH 13.6 % (11.5-14.5)
[2018-09-20 07:48] LABS: ANION GAP 8 (5-13); BLOOD UREA NITROGEN 20 mg/dl (7-20); CALCIUM 8.5 mg/dl (8.4-10.2); CARBON DIOXIDE 30 mmol/L (21-31); CHLORIDE 102 mmol/L (97-110); GLUCOSE 93 mg/dl (70-220); POTASSIUM 4.4 mmol/L (3.5-5.1); SODIUM 140 mmol/L (135-144)
[2018-09-20] MEDS: ENOXAPARIN 30 MG/0.3 ML SYG SC (09:14)
[2018-09-20] MEDS: CITALOPRAM 20 MG TAB PO (09:15)
[2018-09-20] MEDS: CALCIUM CARBONATE 1.25 GM TAB PO (09:15)
[2018-09-20] MEDS: CARBIDOPA/LEVODOPA (25/100) TAB PO ×2 (09:15→20:55)
[2018-09-20] MEDS: CHOLECALCIFEROL 1,000 UNIT TAB PO (09:15)
[2018-09-20] MEDS: FINASTERIDE 5 MG TAB PO (09:15)
[2018-09-20] MEDS: ZINC SULFATE 220 MG CAP PO (09:15)
[2018-09-20] MEDS: CEFEPIME 1GM/50 ML (PMX) 50 ML IVPB ×2 (09:15→20:53)
[2018-09-20] MEDS: ASCORBIC ACID 500 MG TAB PO (09:15)
[2018-09-20] MEDS: RIFAMPIN 300 MG CAP PO ×2 (09:15→20:55)
[2018-09-20] MEDS: FAMOTIDINE 20 MG TAB PO ×2 (09:15→20:55)
[2018-09-20] MEDS: FERROUS SULFATE (EC) 325 MG TAB PO (09:15)
[2018-09-20] MEDS: VANCOMYCIN 1 GM 250 ML IVPB (09:16)
[2018-09-20] MEDS: DAKINS 0.0125%(1/40) 473 ML SOLUTION TP (09:16)
[2018-09-20] MEDS: ATORVASTATIN 10 MG TAB PO (20:55)
[2018-09-21] MEDS: VALPROATE INJ 250 MG in SOD CHLORIDE 0.9% 50 ML IVPB ×3 (05:19→21:32)
[2018-09-21 06:19] LABS: ADD MAN DIFF? NO
[2018-09-21 06:23] LABS: BASOPHIL # 0.1 10^3/ul (0.0-0.1); BASOPHILS % 0.7 % (0.0-2.0); EOSINOPHILS # 0.5 10^3/ul (0.0-0.5); EOSINOPHILS % 4.5 % (0.0-7.0); HEMATOCRIT 34.3 % (42.0-52.0); HEMOGLOBIN 11.2 g/dl (14.0-18.0); LYMPHOCYTES # 1.5 10^3/ul (0.8-2.9); LYMPHOCYTES % 14.5 % (15.0-51.0); MEAN CORPUSCULAR HEMOGLOBIN 29.9 pg (29.0-33.0); MEAN CORPUSCULAR HGB CONC 32.7 g/dl (32.0-37.0); MEAN CORPUSCULAR VOLUME 91.5 fl (82.0-101.0); MEAN PLATELET VOLUME 9.2 fl (7.4-10.4); MONOCYTE # 0.7 10^3/ul (0.3-0.9); MONOCYTES % 6.5 % (0.0-11.0); NEUTROPHIL # 7.6 10^3/ul (1.6-7.5); NEUTROPHILS % 73.3 % (39.0-77.0); PLATELET COUNT 285 10^3/UL (140-415); RED BLOOD COUNT 3.75 10^6/ul (4.70-6.10); RED CELL DISTRIBUTION WIDTH 13.4 % (11.5-14.5)
[2018-09-21 06:23] LABS: WHITE BLOOD COUNT 10.3 10^3/ul (4.8-10.8)
[2018-09-21 06:48] LABS: ANION GAP 4 (5-13); BLOOD UREA NITROGEN 18 mg/dl (7-20); CALCIUM 8.6 mg/dl (8.4-10.2); CARBON DIOXIDE 33 mmol/L (21-31); CHLORIDE 101 mmol/L (97-110); CREATININE 0.99 mg/dl (0.61-1.24); GLUCOSE 106 mg/dl (70-220); POTASSIUM 4.3 mmol/L (3.5-5.1); SODIUM 138 mmol/L (135-144)
[2018-09-21] MEDS: CHOLECALCIFEROL 1,000 UNIT TAB PO (09:49)
[2018-09-21] MEDS: CEFEPIME 1GM/50 ML (PMX) 50 ML IVPB ×2 (09:49→21:32)
[2018-09-21] MEDS: CALCIUM CARBONATE 1.25 GM TAB PO (09:49)
[2018-09-21] MEDS: FERROUS SULFATE (EC) 325 MG TAB PO (09:49)
[2018-09-21] MEDS: CITALOPRAM 20 MG TAB PO (09:49)
[2018-09-21] MEDS: CARBIDOPA/LEVODOPA (25/100) TAB PO ×2 (09:49→21:33)
[2018-09-21] MEDS: RIFAMPIN 300 MG CAP PO ×2 (09:49→21:33)
[2018-09-21] MEDS: FINASTERIDE 5 MG TAB PO (09:49)
[2018-09-21] MEDS: ZINC SULFATE 220 MG CAP PO (09:49)
[2018-09-21] MEDS: FAMOTIDINE 20 MG TAB PO ×2 (09:49→21:33)
[2018-09-21] MEDS: ENOXAPARIN 30 MG/0.3 ML SYG SC (10:03)
[2018-09-21] MEDS: DAKINS 0.0125%(1/40) 473 ML SOLUTION TP (10:07)
[2018-09-21] MEDS: ASCORBIC ACID 500 MG TAB PO (10:07)
[2018-09-21] MEDS: VANCOMYCIN 1 GM 250 ML IVPB (10:32)
[2018-09-21] MEDS: ATORVASTATIN 10 MG TAB PO (21:33)
[2018-09-22] MEDS: VALPROATE INJ 250 MG in SOD CHLORIDE 0.9% 50 ML IVPB ×2 (05:41→14:47)
[2018-09-22] MEDS: DIPHENHYDRAMINE 50 MG INJ IV (05:41)
[2018-09-22] MEDS: ZINC SULFATE 220 MG CAP PO (09:22)
[2018-09-22] MEDS: CHOLECALCIFEROL 1,000 UNIT TAB PO (09:22)
[2018-09-22] MEDS: FERROUS SULFATE (EC) 325 MG TAB PO (09:22)
[2018-09-22] MEDS: CEFEPIME 1GM/50 ML (PMX) 50 ML IVPB (09:22)
[2018-09-22] MEDS: FINASTERIDE 5 MG TAB PO (09:22)
[2018-09-22] MEDS: CITALOPRAM 20 MG TAB PO (09:22)
[2018-09-22] MEDS: ASCORBIC ACID 500 MG TAB PO (09:23)
[2018-09-22] MEDS: RIFAMPIN 300 MG CAP PO (09:23)
[2018-09-22] MEDS: CARBIDOPA/LEVODOPA (25/100) TAB PO (09:23)
[2018-09-22] MEDS: DAKINS 0.0125%(1/40) 473 ML SOLUTION TP (09:23)
[2018-09-22] MEDS: FAMOTIDINE 20 MG TAB PO (09:23)
[2018-09-22] MEDS: CALCIUM CARBONATE 1.25 GM TAB PO (09:23)
[2018-09-22] MEDS: ENOXAPARIN 30 MG/0.3 ML SYG SC (09:33)
[2018-09-22] MEDS: VANCOMYCIN 1 GM 250 ML IVPB (10:13)
[2018-09-23] MEDS ORDERED: VANCOMYCIN 750 MG (PMX) 250 ML IVPB (10:00)
== END 2018-09-22 16:00 | DRG 853 ==
LOC: 6WM 09-16 19:06 → E/R 16:10 → 6WM 17:21
PROC: 0KBP0ZZ Excision of Left Hip Muscle, Open Approach (ICD-10-PCS; 2018-09-11 17:30)
PROC: 0KBN0ZZ Excision of Right Hip Muscle, Open Approach (ICD-10-PCS; 2018-09-11 17:30)
PROC: 02HV33Z Insertion of Infusion Device into Superior Vena Cava, Percutaneous Approach (ICD-10-PCS; principal; 2018-09-11 17:58)
DX: A41.02 Sepsis due to Methicillin resistant Staphylococcus aureus (principal); L89.154 Pressure ulcer of sacral region, stage 4; R53.2 Functional quadriplegia; L03.312 Cellulitis of back [any part except buttock and flank]; L02.212 Cutaneous abscess of back [any part, except buttock and flank]; N39.0 Urinary tract infection, site not specified; E86.0 Dehydration; N40.1 Benign prostatic hyperplasia with lower urinary tract symptoms; R33.8 Other retention of urine; N31.9 Neuromuscular dysfunction of bladder, unspecified; F03.90 Unspecified dementia, unspecified severity, without behavioral disturbance, psychotic disturbance, mood disturbance, and anxiety; F32.9 Major depressive disorder, single episode, unspecified; D64.9 Anemia, unspecified; G20 Parkinson's disease; B96.20 Unspecified Escherichia coli [E. coli] as the cause of diseases classified elsewhere; Z74.01 Bed confinement status; R13.10 Dysphagia, unspecified; Z22.322 Carrier or suspected carrier of Methicillin resistant Staphylococcus aureus
CPT/HCPCS: 36569; 71045; 76937; 80048; 80053; 80202; 81001; 82565; 83605; 83690; 83880; 84484; 84520; 85025; 85610; 85730; 87040-91; 87070; 87075; 87081; 87086; 87102; 88304; 92526; 92610; 93005; 96374; 96375; 99285-25